=== PATIENT | male | born 1965 | race Caucasian/White ===

== ENCOUNTER 2016-05-05 05:18 | Emergency (ER) | payer MEDICARE, MEDICAID ==
[~2016-05-05] VITALS: Ht 182.9 cm; Wt 77.3 kg
[~2016-05-05 05:18] MED LIST: ALBU8.5H2 INHALATION; IPRA4AER IH; KLO5T PO; OLAN5TAB PO; PALI156D IM; PALI234D IM; TIOT18CA3 IH
[2016-05-05 05:28] VITALS: BP 119/75; PULSE 85; RESP 20; O2SAT 93
[2016-05-05 05:40] VITALS: O2SAT 91
[2016-05-05 05:50] VITALS: O2SAT 94
--- NOTE | 2016-05-05 06:32 | ED.REPORT ---
HPI-Dyspnea / Wheezing Date of Service May 05, 2016 ED Provider: Crispin Dumont MD A 51 year old male with a history of COPD, schizophrenia, PTSD, polysubstance abuse presents to the ED complaining of dyspnea onset unknown. Patient is currently experiencing a productive cough and reports that it is difficult to speak. He was recently seen in the ED on 04/17 for chest pain and discharged in good condition. He denies fever. Patient is a poor historian. Nursing Notes Stated Complaint: COUGH Chief Complaint: Respiratory Complaints Nursing Notes Reviewed: Yes Allergies: Coded Allergies: No Known Allergies (Unverified Allergy, Unknown, 05/05/16) Scheduled Albuterol HFA (Proair HFA) 8.5 Gm Hfa.aer.ad 2 PUFFS INHALATION Q4H Albuterol/Ipratropium (Combivent Respimat Inhal [place]) 120 Spr/4 Gm Inhaler 1 PUFF IH QID Albuterol/Ipratropium (Combivent Respimat Inhal [place]) 120 Spr/4 Gm Inhaler 2 PUFF IH QID Clonazepam (Clonazepam) 0.5 Mg Tablet 0.5 MG PO BID Levofloxacin (Levaquin) 750 Mg Tablet 750 MG PO DAILY Olanzapine (Olanzapine) 5 Mg Tablet 10 MG PO 0830,16 Paliperidone Palmitate Inj (Invega Sustenna) 156 Mg/1 Ml Syringe 156 MG IM Q30D Paliperidone Palmitate Inj (Invega Sustenna) 234 Mg/1.5 Ml Syringe 234 MG IM qmonth Prednisone (PredniSONE) 20 Mg Tablet 40 MG PO DAILY Tiotropium [place] (Spiriva) 18 Mcg Cap.w.dev 18 MCG IH DAILY Scheduled PRN Albuterol HFA (Proair HFA) 8.5 Gm Hfa.aer.ad 2 PUFFS INHALATION Q4H PRN PRN For Shortness of Breath General Time Seen by MD: 05:55 Chief Complaint Other (Dyspnea) Hx Obtained From: Patient Arrived By: Walk-in Sudden in Onset?: No Onset Occurred: Onset unknown Symptom Duration: Since onset Associated with: Reports: Cough, Denies: Fever Pertinent Negative: Pt denies other symptoms Recent Healthcare: No recent doctor visit, Recent hospitalization Past Medical History Past Medical History Notes: PCP: Dr. Mason Past Medical History Schizophrenia Polysubstance dependence in past per old records Asthma COPD PTSD, depression, anxiety Reports: Schizophrenia Past Surgical History Reviewed, not relevant Smoking History Current Every Day Smoker Social History Violent and antisocial at times with threatening behavior and a history of threatening and stalking ER staff. Alcohol Use: "Social" Drug Use: IV drugs, Meth, THC Ambulatory Status Independent Review of Systems Constitutional: Denies: Chills, Fever Respiratory: Reports: Dyspnea on exertion, Non-productive cough, Shortness of breath Complete sys rev & neg: except as marked. Physical Exam Initial Vital Signs Vital Signs (First) Date Time Temp Pulse Resp B/P Pulse Ox O2 Delivery O2 Flow Rate FiO2 05/05/16 05:28 36.5 85 20 119/75 93 Room Air 05/05/16 05:50 1 Initial VS: Reviewed Head / Eyes: Atraumatic, Normocephalic, PERRL Extremities: Vascular intact, Neuro intact, No swelling, No tenderness Skin: Warm, Dry, No cyanosis General/Constitutional: Awake, Alert Neck: Atraumatic Respiratory / Chest: Atraumatic, No respiratory distress Wheezing / Retractions: Positive: Wheeze insp/exp diffuse RESPIRATORY: Good air movement Cardiovascular: Heart rate NL, Regular rhythm, Heart sounds NL, No gallop, No murmurs, No rubs ENT: Atraumatic, Airway patent, Mucous membranes moist Interpretation & Diagnostics X-Ray Chest Interpretation Chest Xray Interpretation: IMPRESSION: Mild or early pneumonia posterior left lower lobe. Note: These findings are concordant with the preliminary interpretation. Dictated by: Luis Barclay M.D. on 05/05/2016 at 7:50 Interpretation / Wet Read by: Interpret - Radiologist Re-Eval/Medical Decision Re-Evaluation/Progress : Time of Eval: 08:19 Patient Status: Condition improved Re-Evaluation/Progress Note: Patient is rechecked. He is informed of his lab results, X-ray results and diagnosis. He understands and agrees with the treatment plan to meet with his PCP. Counseled Regarding: Diagnosis, Lab results, Need for follow-up, When/why to return to ED Discharge & Departure Impression: Primary Impression: Pneumonia Pneumonia type: due to unspecified organism Laterality: unspecified laterality Lung location: lower lobe of lung Qualified Code: J18.9 - Pneumonia, unspecified organism Disposition: Home Discharge Condition All VS Reviewed: Yes Condition: Stable Patient Instructions: Bacterial Pneumonia (ED) Additional Instructions: ED evaluation included interview, exam and chest x-ray. We have started antibiotics (levaquin) and prednisone,, a steroid to help your breathing. For home, continue levaquin for 4 more days, starting tomorrow. Prednisone 40mg a day for 4 more days. Combivent 2 puffs 4 times a day and albuterol 2 puffs every 4 hours as needed for shortness of breath. Return to ED for increasing shortness of breath, or if unable to get medications as prescribed. Rx sent to [facility]. Referrals: [facility] (PCP) Scribe Attestation Portions of this note were transcribed by Melinda Valentine. I, Dr. Dumont personally performed the history, physical exam and medical decision-making; I reviewed and confirmed the accuracy of the information in the transcribed note. Signed by: Zayra De Leon, 05/05/16 0840. copies to: [facility]; Tyrell Mason MD, Donald L MD May 05, 2016 06:32 MELINDA VALENTINE May 05, 2016 07:04
[2016-05-05] MEDS ORDERED: Albuterol-Ipratropium 3 mL Inhalation Solution NEB ONE (07:00)
[2016-05-05] MEDS ORDERED: predniSONE 20 mg Tablet PO ONE (07:00)
[2016-05-05] MEDS ORDERED: levoFLOXacin 750 mg Tablet PO ONE (07:00)
[2016-05-05 07:14] VITALS: PULSE 85; RESP 20; O2SAT 96
--- NOTE | 2016-05-05 07:52 | DRSVH ---
PROCEDURE: X-RAY CHEST, TWO VIEWS ([id number]) INDICATIONS: cough TECHNIQUE: 2 views of the chest were acquired. COMPARISON: [facility], CR, XR CHEST 1VW (PORTABLE), 04/17/2016, 12:27. [facility], CR, XR CHEST 2VW, 03/27/2016, 8:08. FINDINGS: Surgical changes and devices: None. Lungs and pleura: No pleural effusions or pneumothorax. Lungs are abnormal with mild or early pneum onia posterior left lung base.. Mediastinum: Mediastinal contours are normal. Heart size is normal. Bones and chest wall: No suspicious bony abnormalities. Soft tissues appear unremarkable. IMPRESSION: Mild or early pneumonia posterior left lower lobe. Note: These findings are concordant with the preliminary interpretation. Dictated by: Luis Barclay M.D. on 05/05/2016 at 7:50 Approved by: Luis Barclay M.D. on 05/05/2016 at 7:50
[2016-05-05] MEDS ORDERED: LEVO750T9 PO (08:34)
[2016-05-05] MEDS ORDERED: IPRA4AER IH (08:34)
[2016-05-05] MEDS ORDERED: PRE20 PO (08:34)
[2016-05-05] MEDS ORDERED: ALBU8.5H2 INHALATION (08:34)
[2016-05-05 08:38] VITALS: BP 131/82; PULSE 78; RESP 18; O2SAT 94
[2016-05-05 09:30] VITALS: BP 126/81; PULSE 87; RESP 20; O2SAT 91
== END 2016-05-05 08:39 | disposition home or self-care (01) ==
LOC: SED 05:18 → EDBD 05:18 → SED 08:39
DX: J18.9 Pneumonia, unspecified organism (principal); J44.9 Chronic obstructive pulmonary disease, unspecified; F17.200 Nicotine dependence, unspecified, uncomplicated
CPT/HCPCS: 71020; 94640; 99284; J7620

== ENCOUNTER 2016-05-05 10:30 | Emergency (ER) | payer MEDICARE, MEDICAID ==
[~2016-05-05] VITALS: Ht 182.9 cm; Wt 77.3 kg
[~2016-05-05 10:30] MED LIST changes: +LEVO750T9 PO; +PRE20 PO
--- NOTE | 2016-05-05 10:31 | ED.REPORT ---
HPI-Dyspnea / Wheezing Date of Service May 05, 2016 ED Provider: Dr. Martinez Pt is a 51 y/o male w/ a hx of asthma, COPD, homelessness, presenting to the ED via EMS c/o SOB onset today. He was seen in the ED about 2 hours previous to this visit and discharged with a diagnosis of pneumonia which was confirmed with x-ray. Nurses were concerned that his O2 saturation was dropping into the high 80s with exertion and the patient did not feel safe to be discharged. His vital signs were thought to be stable and he was discharged and told to return if he seemed to worsen. Labs were not collected during that visit. He was discharged with prescriptions for Levaquin and Prednisone. 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 He received a breathing treatment from EMS with moderate relief. Nursing Notes Stated Complaint: SHORTNESS OF BREATH Nursing Notes Reviewed: Yes Allergies: Coded Allergies: No Known Allergies (Unverified Allergy, Unknown, 05/05/16) Scheduled Albuterol HFA (Proair HFA) 8.5 Gm Hfa.aer.ad 2 PUFFS INHALATION Q4H Albuterol/Ipratropium (Combivent Respimat Inhal [place]) 120 Spr/4 Gm Inhaler 1 PUFF IH QID Albuterol/Ipratropium (Combivent Respimat Inhal [place]) 120 Spr/4 Gm Inhaler 2 PUFF IH QID Clonazepam (Clonazepam) 0.5 Mg Tablet 0.5 MG PO BID Levofloxacin (Levaquin) 750 Mg Tablet 750 MG PO DAILY Olanzapine (Olanzapine) 5 Mg Tablet 10 MG PO 0830,16 Paliperidone Palmitate Inj (Invega Sustenna) 156 Mg/1 Ml Syringe 156 MG IM Q30D Paliperidone Palmitate Inj (Invega Sustenna) 234 Mg/1.5 Ml Syringe 234 MG IM qmonth Prednisone (PredniSONE) 20 Mg Tablet 40 MG PO DAILY Tiotropium [place] (Spiriva) 18 Mcg Cap.w.dev 18 MCG IH DAILY Scheduled PRN Albuterol HFA (Proair HFA) 8.5 Gm Hfa.aer.ad 2 PUFFS INHALATION Q4H PRN PRN For Shortness of Breath General Time Seen by MD: 10:30 Chief Complaint Shortness of breath Hx Obtained From: Patient, EMS Arrived By: Ambulance Sudden in Onset?: No Onset Occurred: 9 - 12 hours ago Symptom Duration: Since onset Severity: Current: No pain currently Severity: Maximum: No pain Recent Healthcare: Recent doctor visit, Previous diagnosis Similar Sx Previous: Yes Past Medical History Past Medical History Notes: PCP: Dr. Mason Past Medical History Schizophrenia Polysubstance dependence in past per old records Asthma COPD PTSD, Depression, Anxiety Past Surgical History Reviewed, not relevant Smoking History Current Every Day Smoker Social History Violent and antisocial at times with threatening behavior and a history of threatening and stalking ER staff. Alcohol Use: "Social" Drug Use: IV drugs, Meth, THC Other Social History: Homeless Ambulatory Status Independent Review of Systems Constitutional: Denies: Chills, Fever Respiratory: Reports: Non-productive cough, Shortness of breath, Wheezing Cardiovascular: Denies: Chest pain, Edema Complete sys rev & neg: except as marked. GI: Denies: Abdominal pain, Nausea, Vomiting Female: Denies: Dysuria Neurologic: Denies: Headache Physical Exam Initial Vital Signs Initial VS: Reviewed, Vital signs normal Head / Eyes: Atraumatic, Normocephalic, PERRL ENT: Mucous membranes moist, Conjunctiva normal, No scleral icterus Abdomen / GI: Soft, Non-tender Extremities: Vascular intact, Neuro intact, No swelling Skin: Warm, Dry, No cyanosis Neurologic: Alert, Oriented, Nonfocal Psychiatric: Mood/affect normal, Behavior normal, Normal thought content General/Constitutional: Awake, Alert, No acute distress, Cooperative, Not toxic appearing Neck: Atraumatic, Supple, No meningismus, Full range of motion Respiratory / Chest: Atraumatic, No respiratory distress, No retractions Diffuse expiratory wheezing Inspiratory soundsnormal Audible wheezing Not tachypneic Cardiovascular: Heart rate NL, Regular rhythm, Heart sounds NL, No gallop, No murmurs, No rubs, Cap refill not delayed, Peripheral circulation NL Interpretation & Diagnostics Lab Results Interpretation Test 05/05/16 10:40 White Blood Count 9.4th/mm3 (3.8-10.1) Red Blood Count 5.14mil/mm3 (4.40-5.80) Hemoglobin 14.7g/dL (13.8-17.2) Hematocrit 44.8% (41.0-50.0) Mean Corpuscular Volume 87.2fL (81-100) Mean Corpuscular Hemoglobin 28.6pg (27.0-35.0) Mean Corpuscular Hemoglobin Concent 32.8% (32.0-37.0) Red Cell Distribution Width 13.8% (12.3-15.4) Platelet Count 289bil/L (150-400) Neutrophils (%) (Auto) 88.2% (40-74) Lymphocytes (%) (Auto) 6.4% (14-46) Monocytes (%) (Auto) 1.8% (4-12) Eosinophils (%) (Auto) 2.8% (0-5) Basophils (%) (Auto) 0.7% (0-3) Sodium Level 133mEq/L (134-144) Potassium Level 4.5mEq/L (3.5-5.2) Chloride Level 96mEq/L (97-108) Carbon Dioxide Level 28mmol/L (18-29) Blood Urea Nitrogen 7mg/dL (6-24) Creatinine 0.90mg/dL (0.76-1.27) Estimat Glomerular Filtration Rate 95mL/min (>59) Glucose Level 189mg/dL (60-99) Hemoglobin A1c 5.7% (4.8-5.6) Calcium Level 9.0mg/dL (8.5-10.1) Total Bilirubin 0.3mg/dL (0.0-1.2) Aspartate Amino Transf (AST/SGOT) 41U/L (0-50) Alanine Aminotransferase (ALT/SGPT) 55U/L (0-44) Alkaline Phosphatase 94U/L (25-150) Total Protein 7.6g/dL (6.4-8.4) Albumin 4.1g/dL (3.4-5.0) Pulse Oximetry Interpretation Pulse Oximetry: Pulse Ox normal, On room air CBC Interpretation CBC normal BMP / CMP Interpretation BMP/CMP normal except, Glucose elevated Re-Eval/Medical Decision Med Decision/Clinical Course 51-year-old male returns to the ER 2 hours after being diagnosed with pneumonia and being sent home from the ER. He is in no obvious respiratory distress. He was wheezy when he arrived and a breathing treatment did help him. He was given an albuterol inhaler in the emergency room. His vitals are normal. We have coordinated with his pharmacy and insurance to make sure he can get the medicines he needs. We have arranged for follow-up. The patient understands this plan. Source of Hx: Old records, EMS Re-Evaluation/Progress : Time of Eval: 11:45 Re-Evaluation/Progress Note: Pt rechecked. O2 sat 98% on RA. He is feeling much better. Informed pt of plan for treatment. Pt understands and agrees with plan for treatment. F/U and RTER warnings given. All questions addressed. Counseled Regarding: Diagnosis, Lab results, Need for follow-up, When/why to return to ED Discharge & Departure Impression: Primary Impression: Left lower lobe pneumonia Pneumonia type: due to unspecified organism Qualified Code: J18.9 - Pneumonia, unspecified organism Additional Impression: Hyperglycemia Disposition: Home Discharge Condition All VS Reviewed: Yes Condition: Stable Patient Instructions: Bacterial Pneumonia (ED) Additional Instructions: I believe it is appropriate for you to be discharged because your labs and vital signs today are normal. Please take the prescribed Levaquin and Prednisone as directed. Use your Albuterol every 4 hours as needed for wheezing. Return to the emergency department for worsening shortness of breath or respiratory distress, if you develop a high fever, or for other concerning symptoms. Follow-up with Dr. Mason next week. I believe that you have diabetes and I have ordered a test to confirm this which will be back by the time you see your doctor. Call tomorrow morning to set up an appointment. Referrals: Tyrell Mason MD Attestation Portions of this note were transcribed by Power De La V[place]. I, Dr. Carter personally performed the history, physical exam and medical decision-making; I reviewed and confirmed the accuracy of the information in the transcribed note. Signed by Zayra Abel, 05/05/16 - 1100 copies to: Tyrell Mason MD, Gary R DO May 05, 2016 10:31 POWER DE LA [place]GA May 05, 2016 10:44 Amanuel Martinez DO May 05, 2016 10:31 POWER DE [place] May 05, 2016 10:44
[2016-05-05 10:35] VITALS: BP 128/66; PULSE 93; RESP 15; O2SAT 96
[2016-05-05] MEDS ORDERED: Albuterol HFA 60 Puff 8 Gm Inhaler INHALATION ONE (10:50)
[2016-05-05 10:56] LABS: BASOPHILS % (AUTO) 0.7 % (0-3); EOSINOPHILS % (AUTO) 2.8 % (0-5); MONOCYTES % (AUTO) 1.8 % (4-12); Mean Corpuscular Hemoglobin 28.6 pg (27.0-35.0); Mean Corpuscular Volume 87.2 fL (81-100); NEUTROPHILS % (AUTO) 88.2 % (40-74); Platelet Count 289 bil/L (150-400)
[2016-05-05 12:49] VITALS: BP 114/66; PULSE 84; O2SAT 93
== END 2016-05-05 12:17 | disposition home or self-care (01) ==
LOC: SED 10:30
DX: J18.9 Pneumonia, unspecified organism (principal); R73.9 Hyperglycemia, unspecified; J44.9 Chronic obstructive pulmonary disease, unspecified; F20.9 Schizophrenia, unspecified; F17.200 Nicotine dependence, unspecified, uncomplicated; Z59.0 Homelessness

== ENCOUNTER 2016-06-08 17:38 | Emergency (ER) | payer MEDICARE, MEDICAID ==
[~2016-06-08] VITALS: Ht 182.9 cm; Wt 75.0 kg
[2016-06-08] VITALS (7 sets, daily range): BP systolic 102–110; BP diastolic 52–70; PULSE 78–87; RESP 16–24; O2SAT 94–99
[2016-06-08 18:59] LABS: BASOPHILS % (AUTO) 1.3 % (0-3); EOSINOPHILS % (AUTO) 12.6 % (0-5); MONOCYTES % (AUTO) 9.7 % (4-12); Mean Corpuscular Hemoglobin 28.6 pg (27.0-35.0); NEUTROPHILS % (AUTO) 47.1 % (40-74); Platelet Count 250 bil/L (150-400)
[2016-06-08 19:26] LABS: TROPONIN T < 0.010 ug/L (0.0-0.011)
--- NOTE | 2016-06-08 21:01 | ED.REPORT ---
HPI-Dyspnea / Wheezing Date of Service Jun 08, 2016 ED Provider: Guru Tabor MD A homeless 51 year old male with a history of COPD and schizophrenia is brought to the ED via EMS due to respiratory distress. The pt has been experiencing a worsening cough for two to three weeks in addition to increased shortness of breath and wheezing, though he denies fever. He does not have nebulizer treatments at home. He was seen twice on 05/05/2016 for left lower lobe pneumonia and discharged with prescriptions for Levaquin and Prednisone. History is severely limited by pt inability to communicate. Nursing Notes Stated Complaint: SHORTNESS OF BREATH Chief Complaint: Respiratory Complaints Nursing Notes Reviewed: Yes Allergies: Coded Allergies: No Known Allergies (Verified Allergy, Unknown, 06/08/16) Scheduled Albuterol HFA (Proair HFA) 8.5 Gm Hfa.aer.ad 2 PUFFS INHALATION Q4H Albuterol HFA (Proair HFA) 8.5 Gm Hfa.aer.ad 2-4 PUFFS INHALATION Q2H Albuterol/Ipratropium (Combivent Respimat Inhal [place]) 120 Spr/4 Gm Inhaler 1 PUFF IH QID Albuterol/Ipratropium (Combivent Respimat Inhal [place]) 120 Spr/4 Gm Inhaler 2 PUFF IH QID Clonazepam (Clonazepam) 0.5 Mg Tablet 0.5 MG PO BID Levofloxacin (Levaquin) 750 Mg Tablet 750 MG PO DAILY Olanzapine (Olanzapine) 5 Mg Tablet 10 MG PO 0830,16 Paliperidone Palmitate Inj (Invega Sustenna) 156 Mg/1 Ml Syringe 156 MG IM Q30D Paliperidone Palmitate Inj (Invega Sustenna) 234 Mg/1.5 Ml Syringe 234 MG IM qmonth Prednisone (PredniSONE) 20 Mg Tablet 40 MG PO DAILY Prednisone (PredniSONE) 20 Mg Tablet 60 MG PO DAILY Tiotropium [place] (Spiriva) 18 Mcg Cap.w.dev 18 MCG IH DAILY Scheduled PRN Albuterol HFA (Proair HFA) 8.5 Gm Hfa.aer.ad 2 PUFFS INHALATION Q4H PRN PRN For Shortness of Breath General Time Seen by MD: 20:59 Chief Complaint Cough Hx Obtained From: Patient, EMS Arrived By: Ambulance Sudden in Onset?: No Onset Occurred: More than a week ago... Symptom Duration: Since onset Recent Healthcare: Recent doctor visit, Recent hospitalization Similar Sx Previous: Yes Past Medical History Past Medical History Notes: PCP: Dr. Mason Past Medical History Schizophrenia Polysubstance dependence in past per old records Asthma COPD PTSD, Depression, Anxiety Past Surgical History Reviewed, not relevant Smoking History Current Every Day Smoker Social History Violent and antisocial at times with threatening behavior and a history of threatening and stalking ER staff. Alcohol Use: "Social" Drug Use: IV drugs, Meth, THC Other Social History: Homeless Ambulatory Status Independent Review of Systems Constitutional: Denies: Fever Respiratory: Reports: Prod cough, clear, Shortness of breath, Wheezing Cardiovascular: Denies: Chest pain Musculoskeletal: Denies: Back pain Skin: Denies Rash Complete sys rev & neg: except as marked. Physical Exam Initial Vital Signs Vital Signs (First) Date Time Temp Pulse Resp B/P Pulse Ox O2 Delivery O2 Flow Rate FiO2 06/08/16 17:46 36.5 79 24 110/70 97 Simple Mask 7 Initial VS: Reviewed General/Constitutional: Awake, Alert, No acute distress disheveled minimally intelligible Neck: Atraumatic, Supple, Full range of motion Respiratory / Chest: Atraumatic, Breath sounds = bilat, No respiratory distress diffuse inspiratory and expiratory wheezing with no rales Cardiovascular: Heart rate NL, Regular rhythm, Heart sounds NL ENT: Atraumatic, Airway patent, Mucous membranes moist Abdomen: Atraumatic, Soft, Non-tender Back: Atraumatic, Full range of motion Lower Extremity / Pelvis / MS: Atraumatic, Full range of motion Skin: Atraumatic, Color NL, No rash, Warm, Dry Neurologic: Oriented X3, No motor deficits, No sensory deficits Head / Eyes: Atraumatic, Normocephalic, PERRL, EOMI Upper Extremity / MS: Atraumatic, Full range of motion Psychiatric: Affect NL, Mood NL Interpretation & Diagnostics Lab Results Interpretation Result Diagram: 06/08/16184406/08/161844 Test 06/08/16 18:45 White Blood Count 7.2th/mm3 (3.8-10.1) Red Blood Count 4.30mil/mm3 (4.40-5.80) Hemoglobin 12.3g/dL (13.8-17.2) Hematocrit 37.0% (41.0-50.0) Mean Corpuscular Volume 86.0fL (81-100) Mean Corpuscular Hemoglobin 28.6pg (27.0-35.0) Mean Corpuscular Hemoglobin Concent 33.2% (32.0-37.0) Red Cell Distribution Width 13.6% (12.3-15.4) Platelet Count 250bil/L (150-400) Neutrophils (%) (Auto) 47.1% (40-74) Lymphocytes (%) (Auto) 29.2% (14-46) Monocytes (%) (Auto) 9.7% (4-12) Eosinophils (%) (Auto) 12.6% (0-5) Basophils (%) (Auto) 1.3% (0-3) Sodium Level 130mEq/L (134-144) Potassium Level 3.5mEq/L (3.5-5.2) Chloride Level 94mEq/L (97-108) Carbon Dioxide Level 26mmol/L (18-29) Blood Urea Nitrogen 9mg/dL (6-24) Creatinine 0.87mg/dL (0.76-1.27) Estimat Glomerular Filtration Rate 99mL/min (>59) Glucose Level 105mg/dL (60-99) Calcium Level 8.3mg/dL (8.5-10.1) Total Bilirubin 0.2mg/dL (0.0-1.2) Aspartate Amino Transf (AST/SGOT) 26U/L (0-50) Alanine Aminotransferase (ALT/SGPT) 39U/L (0-44) Alkaline Phosphatase 83U/L (25-150) Troponin T < 0.010ug/L (0.0-0.011) Pro-B-Type Natriuretic Peptide 238.0pg/mL (0-121) Total Protein 6.2g/dL (6.4-8.4) Albumin 3.4g/dL (3.4-5.0) Hold Ramírez Top Tube Received (Received) ECG Interpretation ECG Interpretation: normal sinus rhythm with a rate of 69 ST elevation, probable early repol pattern Time: 18:44 Interpreted by: ED physician Re-Eval/Medical Decision Source of Hx: Old records Re-Evaluation/Progress : Time of Eval: 23:07 Patient Status: Condition improved Re-Evaluation/Progress Note: Pt rechecked, whose breathing has significantly improved following nebulizer treatments. He is feeling prepared for discharge. The plan for discharge is discussed. The pt understands and agrees with the plan. All questions are addressed at this time. Counseled Regarding: Diagnosis, Lab results, Need for follow-up, When/why to return to ED Discharge & Departure Impression: Primary Impression: Acute exacerbation of COPD with asthma Disposition: Home Discharge Condition All VS Reviewed: Yes Condition: Stable Patient Instructions: Emphysema (ED) Additional Instructions: I think that you have experienced a flare-up of your COPD with asthma. I expect that you will feel much better if you take 2-4 inhalations of the albuterol every 2 hours for the next few days. Also, take prednisone 60 mg daily for 5 days. Follow-up with your doctor in a few days if you are not feeling much better, sooner if worse. Referrals: Tyrell Mason MD (PCP) [place] Attestation Portions of this note were transcribed by Juliet Coe. I, Dr. Tabor personally performed the history, physical exam and medical decision-making; I reviewed and confirmed the accuracy of the information in the transcribed note. Signed by: Zayra Nelson, 06/08/2016 and 23:21. copies to: Tyrell Mason MD, Kirk H MD Jun 08, 2016 21:01 JULIET COE Jun 08, 2016 21:42
[2016-06-08] MEDS ORDERED: Albuterol 2.5 mg/3 mL Inhalation Solution NEB ONE (21:25)
[2016-06-08] MEDS ORDERED: predniSONE 20 mg Tablet PO ONE (21:25)
[2016-06-08] MEDS ORDERED: ALBU8.5H2 INHALATION (23:14)
[2016-06-08] MEDS ORDERED: PRE20 PO (23:14)
--- NOTE | 2016-06-09 15:12 | DRSVH ---
PROCEDURE: X-RAY CHEST ONE VIEW, PORTABLE ([id number]) INDICATIONS: Shortness of breath TECHNIQUE: One view of the chest was acquired. COMPARISON: [facility], CR, XR CHEST 1VW (PORTABLE), 04/17/2016, 12:27. [facility], CR, XR CHEST 2VW, 05/05/2016, 5:47. FINDINGS: Surgical changes and devices: None. Lungs and pleura: Slight appearance increased right basilar opacity. Mediastinum: Mediastinal contours appear normal. Heart size is normal. Bones and chest wall: No suspicious bony lesions. Overlying soft tissues appear unremarkable. IMPRESSION: Slight appearance of increased right basilar. Developing airspace disease such as pneumon ia cannot be excluded. Dictated by: Toshia Alva M.D. on 06/08/2016 at 18:48 Approved by: Toshia Alva M.D. on 06/08/2016 at 18:52
== END 2016-06-08 23:40 | disposition home or self-care (01) ==
LOC: SED 17:38
DX: J44.1 Chronic obstructive pulmonary disease with (acute) exacerbation (principal); J45.909 Unspecified asthma, uncomplicated; F20.9 Schizophrenia, unspecified; F17.200 Nicotine dependence, unspecified, uncomplicated
CPT/HCPCS: 36415; 71010; 80053; 83880; 84484; 85025; 93005; 94644; 99285; J7613

== ENCOUNTER 2016-07-01 18:45 | Inpatient (IN) | payer MEDICARE, MEDICAID, OTHER ==
[~2016-07-01] VITALS: Ht 180.3 cm; Wt 73.3 kg
[2016-07-01 18:53] VITALS: BP 130/90; PULSE 90; RESP 22; O2SAT 98
--- NOTE | 2016-07-01 20:08 | ED.REPORT ---
HPI-General Illness Date of Service Jul 01, 2016 ED Provider: Dr. Shanika Mejía M.D. A 51 year old male with a history of schizophrenia, COPD, asthma, PTSD, depression, anxiety, and polysubstance abuse presents to the ED with shortness of breath. He also requests psychiatric evaluation and treatment. The patient denies cough, suicidal ideation, homicidal ideation, or other symptoms. He has run out of his home medications. History is limited due to the patient's communication difficulties. He presents agitated, mumbling, and making poor eye contact. Nursing Notes Stated Complaint: DIFFICULTY BREATHING Chief Complaint: Respiratory Complaints Nursing Notes Reviewed: Yes Allergies: Coded Allergies: No Known Allergies (Verified Allergy, Unknown, 07/01/16) Scheduled Albuterol/Ipratropium (Combivent Respimat Inhal [place]) 120 Spr/4 Gm Inhaler 1 PUFF IH QID Olanzapine (Olanzapine) 5 Mg Tablet 10 MG PO 0830,16 Paliperidone Palmitate Inj (Invega Sustenna) 156 Mg/1 Ml Syringe 156 MG IM Q30D Scheduled PRN Albuterol HFA (Proair HFA) 8.5 Gm Hfa.aer.ad 2 PUFFS INHALATION Q4H PRN PRN For Shortness of Breath General Time Seen by MD: 20:07 Chief Complaint Breathing problem Hx Obtained From: Patient Arrived By: Walk-in Onset Occurred: Onset unknown Symptom Duration: Duration unknown Severity: Current: No pain currently Severity: Maximum: No pain Associated with: Denies: Cough, Fever Pertinent Negative: Relieved by nothing Context Related History: Reports Asthma, Reports COPD, Reports Psychiatric history Recent Healthcare: No recent doctor visit Similar Sx Previous: Yes Past Medical History Past Medical History Notes: PCP: Dr. Mason Past Medical History Schizophrenia Polysubstance dependence in past per old records Asthma COPD PTSD, Depression, Anxiety Past Surgical History Reviewed, not relevant Smoking History Current Every Day Smoker Social History Violent and antisocial at times with threatening behavior and a history of threatening and stalking ER staff. Alcohol Use: "Social" Drug Use: IV drugs, Meth, THC Other Social History: Homeless Ambulatory Status Independent Review of Systems + Psychiatric evaluation request Full Review of Systems Constitutional: Denies: Fever Respiratory: Reports: Shortness of breath, Denies: Non-productive cough GI: Denies: Diarrhea, Vomiting Psychiatric: Denies: Homicidal ideation, Suicidal ideation Complete sys rev & neg: except as marked. Physical Exam Vital Signs Vital Signs Date Time Temp Pulse Resp B/P Pulse Ox O2 Delivery O2 Flow Rate FiO2 07/01/16 21:13 72 16 97 Room Air 07/01/16 18:53 35.6 90 22 130/90 98 Room Air Initial VS: Reviewed, Vital signs normal Head / Eyes: Atraumatic, Normocephalic ENT: Conjunctiva normal, No scleral icterus Neck: Supple, Full range of motion Respiratory: Breath sounds normal, Clear to auscultation, No respiratory distress Cardiovascular: Regular rate & rhythm, Heart sounds normal Skin: Warm, Dry, No cyanosis General/Constitutional: Awake, Alert Behavior: Positive: Agitated Patient is mumbling Psychiatric: Not suicidal, Not homicidal Making poor eye contact Interpretation & Diagnostics URINE DRUG SCREEN: + Methamphetamines + Amphetamines Otherwise Negative Lab Results Interpretation Result Diagram: 07/01/16204807/01/162048 Test 07/01/16 20:49 07/01/16 21:16 White Blood Count 10.3th/mm3 (3.8-10.1) Red Blood Count 4.52mil/mm3 (4.40-5.80) Hemoglobin 13.0g/dL (13.8-17.2) Hematocrit 37.1% (41.0-50.0) Mean Corpuscular Volume 82.1fL (81-100) Mean Corpuscular Hemoglobin 28.8pg (27.0-35.0) Mean Corpuscular Hemoglobin Concent 35.0% (32.0-37.0) Red Cell Distribution Width 13.1% (12.3-15.4) Platelet Count 278bil/L (150-400) Neutrophils (%) (Auto) 69.4% (40-74) Lymphocytes (%) (Auto) 21.3% (14-46) Monocytes (%) (Auto) 6.7% (4-12) Eosinophils (%) (Auto) 1.8% (0-5) Basophils (%) (Auto) 0.5% (0-3) Sodium Level 121mEq/L (134-144) Potassium Level 4.2mEq/L (3.5-5.2) Chloride Level 85mEq/L (97-108) Carbon Dioxide Level 24mmol/L (18-29) Blood Urea Nitrogen 11mg/dL (6-24) Creatinine 0.86mg/dL (0.76-1.27) Estimat Glomerular Filtration Rate 100mL/min (>59) Glucose Level 95mg/dL (60-99) Calcium Level 8.4mg/dL (8.5-10.1) Total Bilirubin 0.7mg/dL (0.0-1.2) Aspartate Amino Transf (AST/SGOT) 65U/L (0-50) Alanine Aminotransferase (ALT/SGPT) 88U/L (0-44) Alkaline Phosphatase 75U/L (25-150) Total Protein 6.7g/dL (6.4-8.4) Albumin 4.0g/dL (3.4-5.0) Thyroid Stimulating Hormone (TSH) 0.967uIU/mL (0.450-4.500) Hold Ramírez Top Tube Received (Received) Hold Urine Received (Received) Re-Eval/Medical Decision Med Decision/Clinical Course The patient is very difficult to understand. Heis not doing well physically to go upstairs. He denies being suicidal or homicidal. He has had hyponatremia in the past. He Has Hyponatremia Which Could Explain Some of the Symptoms. He Was Given Zyprexa and to Get Willingly. His Current Condition Is Likely Related to Medication Noncompliance and Hyponatremia. Patient Also Complained of Some Breathing Difficulty Has History of COPD Although He Does Not Have Any Respiratory Distress. Source of Hx: Old records Time of Eval: 23:51 Patient Status: Condition improved Re-Evaluation/Progress Note: Discussed with patient lab results, diagnosis, and plan for admit. Patient agrees with plan for care and all questions were addressed. Consultation : Referral / Consult Name: Rosa Ortiz DO Consulted With: Hospitalist Call Returned at: 23:57 Cyber Systems Engineer: Agrees with eval, Agrees with plan, Accepts admit Counseled Regarding: Diagnosis, Lab results, Need for admission Discharge & Departure Primary Impression: Hyponatremia Additional Impressions: COPD (chronic obstructive pulmonary disease) COPD type: unspecified COPD Qualified Code: J44.9 - Chronic obstructive pulmonary disease, unspecified Schizophrenia Schizophrenia type: unspecified Qualified Code: F20.9 - Schizophrenia, unspecified Disposition: ADMITTED TO HOSPITAL Discharge Condition All VS Reviewed: Yes Condition: Improved Referrals: Tyrell Mason MD (PCP) Scribe Attestation Portions of this note were transcribed by Emy Goodwin. I, Dr. Mejía, personally performed the history, physical exam, and medical decision-making; I reviewed and confirmed the accuracy of the information in the transcribed note. Signed by: Zayra Cosme, 07/01/2016, 23:59 copies to: Tyrell Mason MD, Jena M MD Jul 01, 2016 20:08 EMY GOODWIN Jul 01, 2016 20:42
[2016-07-01] MEDS ORDERED: OLANZapine Zydis ODT 5 mg Tablet PO ONE (20:40)
[2016-07-01] MEDS ORDERED: Albuterol-Ipratropium 3 mL Inhalation Solution NEB ONE (20:40)
[2016-07-01] MEDS ORDERED: predniSONE 20 mg Tablet PO ONE (20:40)
[2016-07-01 20:58] LABS: BASOPHILS % (AUTO) 0.5 % (0-3); EOSINOPHILS % (AUTO) 1.8 % (0-5); MONOCYTES % (AUTO) 6.7 % (4-12); Mean Corpuscular Hemoglobin 28.8 pg (27.0-35.0); Mean Corpuscular Volume 82.1 fL (81-100); NEUTROPHILS % (AUTO) 69.4 % (40-74); Platelet Count 278 bil/L (150-400)
[2016-07-01 21:13] VITALS: PULSE 72; RESP 16; O2SAT 97
[2016-07-01] MEDS ORDERED: LORazepam 1 mg Tablet PO ONE (21:15)
[2016-07-01] MEDS ORDERED: 0.9% Sodium Chloride 1,000 ML IV ONE (21:55)
[2016-07-02] VITALS (10 sets, daily range): BP systolic 93–119; BP diastolic 59–71; PULSE 54–83; RESP 14–18; O2SAT 97–99
[2016-07-02] MEDS ORDERED: Polyethylene Glycol (PEG) 17 Gm Powder PO PRN
[2016-07-02] MEDS ORDERED: Ondansetron 2 mg/mL 2 mL Inj IVPUSH PRN
[2016-07-02] MEDS ORDERED: Alum-Mag Hydrox-Simeth 30 mL Suspension PO PRN
[2016-07-02] MEDS ORDERED: Albuterol-Ipratropium 3 mL Inhalation Solution NEB PRN (02:45)
--- NOTE | 2016-07-02 02:53 | PCM.HPMED ---
Subjective Date of Service Jul 02, 2016 Primary Provider: Admitting Physician: Rosa Ortiz DO Primary Care Physician: Tyrell Mason MD Attending Physician: Rosa Ortiz DO Admit Status: From the Emergency Department Chief Complaint: Difficulty breathing History of Present Illness: 51 year old male with a history of schizophrenia, COPD, asthma, PTSD, depression , anxiety, and polysubstance abuse presented to the ED with shortness of breath. He additionally requests psychiatric evaluation and treatment. He denies homicidal or suicidal ideation. Patient had a similar hospitalization in January 2016 with hyponatremia. After his medical clearance he had a continued stay at the [facility]. Per report he has not been compliant with his medications as he has not been able to obtain them. In the emergency department urine drug screen is positive for methamphetamines and amphetamines, otherwise negative. The majority of history is obtained from records as patient was sedated upon examination, he would nod in response to some questions and was appropriate upon transfer to the floor per [employer] Review of Systems: Unable to obtain review of systems due to patient's sleepiness Allergies Coded Allergies: No Known Allergies (Verified Allergy, Unknown, 07/01/16) Home Medications Patient reports noncompliance of medications as he has run out. He has recently used his rescue inhaler Pro-air 2 puffs inhaled every 4 hours when necessary Combivent 1 puff inhaled 4 times a day Olanzapine 10 mg by mouth 1830, 1600 daily Paliperidone palmitate (Invega Sustenna) 156 mg per 1 mL syringe, 156 mg IM every 30 days, last administration February 12, 2016 [facility] Schizophrenia polysubstance abuse Asthma COPD PTSD Depression anxiety Surgical History Unable to obtain due to patient's mental status and sedation Family History Unable to obtain due to patient's level of sedation Social History Hx Alcohol Use: No Hx Substance Use: Yes (meth, crystal, marijuana) Hx Tobacco Use: No (Denies) Smoking Status: Current Every Day Smoker Living Arrangement: Homeless Exam Vital Signs Vital Sign - Last Date Time Temp Pulse Resp B/P Pulse Ox O2 Delivery O2 Flow Rate FiO2 07/02/16 00:45 66 07/02/16 00:30 36.9 16 112/69 98 Room Air Intake and Output 07/01/16 07/01/16 07/02/16 Cumulative From/Thru 14:59 22:59 06:59 07/01/16 18:53 - 07/02/16 01:16 Intake Total 500 ml 500 ml Output Total 800 ml 800 ml Balance -300 ml -300 ml Intake Oral 500 ml 500 ml Output Urine Total 800 ml 800 ml # Voids 2 2 Exam General: Somnolent, breathing comfortably HEENT: Normocephalic, atraumatic. External ears without defect. Cardiovascular: Regular rate and rhythm with no murmurs, rubs, or gallops appreciated Pulmonary: Clear to auscultation bilaterally with no crackles, wheezes, or rhonchi. Normal respiratory effort with no use of accessory muscles. Abdomen: Bowel tones present. Soft, nontender, nondistended. Extremities: No clubbing, cyanosis, edema, or lymphadenopathy appreciated. Feet dirty Skin: Normal temperature, turgor, and texture; no rash, ulcers, or subcutaneous nodules appreciated. Neurological: Somnolent No known gait impairment. Psychiatric: Mumbling and agitated without making eye contact in emergency department per report Lab and Diagnostics Labs CBC Test 07/01/16 20:49 White Blood Count 10.3th/mm3 (3.8-10.1) Red Blood Count 4.52mil/mm3 (4.40-5.80) Hemoglobin 13.0g/dL (13.8-17.2) Hematocrit 37.1% (41.0-50.0) Mean Corpuscular Volume 82.1fL (81-100) Mean Corpuscular Hemoglobin 28.8pg (27.0-35.0) Mean Corpuscular Hemoglobin Concent 35.0% (32.0-37.0) Red Cell Distribution Width 13.1% (12.3-15.4) Platelet Count 278bil/L (150-400) Neutrophils (%) (Auto) 69.4% (40-74) Lymphocytes (%) (Auto) 21.3% (14-46) Monocytes (%) (Auto) 6.7% (4-12) Eosinophils (%) (Auto) 1.8% (0-5) Basophils (%) (Auto) 0.5% (0-3) CMP Test 07/01/16 20:49 Sodium Level 121mEq/L Potassium Level 4.2mEq/L Chloride Level 85mEq/L Carbon Dioxide Level 24mmol/L Blood Urea Nitrogen 11mg/dL Creatinine 0.86mg/dL Estimat Glomerular Filtration Rate 100mL/min Glucose Level 95mg/dL Calcium Level 8.4mg/dL Total Bilirubin 0.7mg/dL Aspartate Amino Transf (AST/SGOT) 65U/L Alanine Aminotransferase (ALT/SGPT) 88U/L Alkaline Phosphatase 75U/L Total Protein 6.7g/dL Albumin 4.0g/dL Thyroid Stimulating Hormone (TSH) 0.967uIU/mL Hold Ramírez Top Tube Received Result Diagram: 07/01/16204807/01/162048 Assessment & Plan 51 year old male with a history of schizophrenia, COPD, asthma, PTSD, depression , anxiety, and polysubstance abuse presented to the ED with shortness of breath. 1. Hyponatremia, present on admission, active -Serum sodium on admission was 121. The patient appears to have chronic hyponatremia based on prior admissions. 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 Acute psychosis, present on admission, active. -Patient with a long history of paranoid schizophrenia and reportedly has been noncompliant with medications for the past few months - He has a history of substance abuse, including methamphetamine. Patient received IM Zyprexa in ED. -Positive amphetamines and methamphetamines on urine tox dip in the emergency department -Continue 10 mg Zyprexa po daily -Hold paliperidone palmitate injection until after psych evaluation as it is a very long acting medication -Consult to psychiatry when stable and sodium > 130. 3. Acute on chronic asthma exacerbation, present on admission, active - Patient reports dyspnea - Restart Combivent and pro-air - DuoNeb when necessary 4. History of hepatitis C, active - Diagnosed during similar admission in January 2016 - Hepatitis C genotype 3 - Unknown if treatment ever pursued 5. History of hyperthyroidism, not currently active - Diagnosed during similar admission in January 2016 - TSH 0.967 on admission Acetaminophen for mild pain when necessary. Bowel regimen Senna and MiraLAX PRN. Zofran when necessary for nausea and vomiting. DVT prophylaxis with sub cutaneous Lovenox Patient unable to discuss CODE STATUS at this time, he was made full code by default Patient is admitted under observation status with expected length of stay less than 2 midnights due to severity of presenting symptoms, risk of adverse event, and complexity of treatment plan. Pain Evaluation: Adequate Pain Control Resuscitation Status: CPR: Attempt Resuscitation Attending Statement The patient was seen and examined together with house staff on 07/01/2016 and I agree with the history, exam and plan as outlined in the note above. Leia Rao DO Jul 02, 2016 02:53 Rosa Ortiz DO Jul 02, 2016 16:19
[2016-07-02] MEDS ORDERED: 0.9% Sodium Chloride 1,000 ML IV SCH (04:20)
[2016-07-02] MEDS ORDERED: Paliperidone Palmitate 156 mg/mL Inj (NC) IM SCH (05:35)
[2016-07-02] MEDS ORDERED: Albuterol 2.5 mg/3 mL Inhalation Solution NEB PRN (05:36)
[2016-07-02 07:41] LABS: BASOPHILS % (AUTO) 0.4 % (0-3); EOSINOPHILS % (AUTO) 0.9 % (0-5); MONOCYTES % (AUTO) 7.5 % (4-12); Mean Corpuscular Volume 82.5 fL (81-100); NEUTROPHILS % (AUTO) 74.5 % (40-74); Platelet Count 298 bil/L (150-400)
[2016-07-02] MEDS: Albuterol-Ipratropium 3 mL Inhalation Solution NEB SCH ×2 (08:27→11:00)
[2016-07-02 08:32] LABS: APPEARANCE,URINE HAZY (CLEAR,HAZY); COLOR,URINE STRAW (YELLOW); OCCULT BLOOD,URINE NEGATIVE (NEGATIVE); PH,URINE 6.5 (5.0-8.0); UROBILINOGEN,URINE NORMAL (NORMAL)
--- NOTE | 2016-07-02 08:51 | DRSVH ---
PROCEDURE: X-RAY CHEST ONE VIEW, PORTABLE ([id number]) INDICATIONS: dyspnea TECHNIQUE: One view of the chest was acquired. COMPARISON: [facility], CR, XR CHEST 2VW, 05/05/2016, 5:47. [facility], CR, XR CHEST 1VW (PORTABLE), 06/08/2016, 18:28. FINDINGS: Surgical changes and devices: None. Lungs and pleura: No pleural effusions or pneumothorax. Lungs are clear. Mediastinum: Mediastinal contours appear normal. Heart size is normal. Bones and chest wall: No suspicious bony lesions. Overlying soft tissues appear unremarkable. IMPRESSION: No definite acute cardiopulmonary process. Dictated by: Sami Reyes RRLuis Felipe Interpreted: Toshia Alva MD on 07/02/2016 at 8:50 Transcribed by: ESEQUIEL on 07/02/2016 at 8:51 Approved by: Toshia Alva M.D. on 07/02/2016 at 16:34
[2016-07-02 09:34] LABS: OSMOLALITY, URINE 162 mOs/kH2O (250-1200)
--- NOTE | 2016-07-02 13:31 | PCM.PNMED ---
Subjective Date of Service Jul 02, 2016 Subjective Continues to feel fatigued. Sodium overcorrected above goal to 133 from 121.repeat Na 131 . No new neurological complaints or findings. IV fluids discontinued. Exam Vital Signs Vital Sign - Last Date Time Temp Pulse Resp B/P Pulse Ox O2 Delivery O2 Flow Rate FiO2 07/02/16 12:37 65 07/02/16 10:40 36.3 16 93/59 97 Room Air Intake and Output 07/01/16 07/01/16 07/02/16 Cumulative From/Thru 15:00 23:00 07:00 07/01/16 18:53 - 07/02/16 06:42 Intake Total 500 ml 1731 ml 2231 ml Output Total 800 ml 2600 ml 3400 ml Balance -300 ml -869 ml -1169 ml Intake Oral 500 ml 1600 ml 2100 ml IV Total 131 ml 131 ml Output Urine Total 800 ml 2600 ml 3400 ml # Voids 2 4 6 # Bowel Movements 0 0 Exam General: alert and oriented, breathing comfortably HEENT: Normocephalic, atraumatic. External ears without defect. Cardiovascular: Regular rate and rhythm with no murmurs, rubs, or gallops appreciated Pulmonary: Clear to auscultation bilaterally with no crackles, wheezes, or rhonchi. Normal respiratory effort with no use of accessory muscles. Abdomen: Bowel tones present. Soft, nontender, nondistended. Extremities: No clubbing, cyanosis, edema, or lymphadenopathy appreciated. Skin: Normal temperature, turgor, and texture; no rash, ulcers, or subcutaneous nodules appreciated. Neurological: Somnolent No known gait impairment. Psychiatric: Mumbling and follows commands IVs and Medications Medications Reviewed: Medications were reviewed in detail Lab and Diagnostics Result Diagram: 07/02/1658 07/02/16 0558 X-Rays, CTs and MRIs PROCEDURE: X-RAY CHEST ONE VIEW, PORTABLE ([id number]) INDICATIONS: dyspnea TECHNIQUE: One view of the chest was acquired. COMPARISON: [facility], CR, XR CHEST 2VW, 05/05/2016, 5:47. [facility], CR, XR CHEST 1VW (PORTABLE), 06/08/2016, 18:28. FINDINGS: Surgical changes and devices: None. Lungs and pleura: No pleural effusions or pneumothorax. Lungs are clear. Mediastinum: Mediastinal contours appear normal. Heart size is normal. Bones and chest wall: No suspicious bony lesions. Overlying soft tissues appear unremarkable. IMPRESSION: No definite acute cardiopulmonary process. Dictated by: Sami Reyes RRA Interpreted: Toshia Alva MD on 07/02/2016 at 8:50 Assessment & Plan 51 year old male with a history of schizophrenia, COPD, asthma, PTSD, depression , anxiety, and polysubstance abuse presented to the ED with shortness of breath. 1. Hyponatremia, present on admission, active -Serum sodium on admission was 121. The patient appears to have chronic hyponatremia based on prior admissions. 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 IVF discontinued. Repeat sodium 131 from 133 2. psychosis, present on admission, active. -Patient with a long history of paranoid schizophrenia and reportedly has been noncompliant with medications for the past few months - He has a history of substance abuse, including methamphetamine. Patient received IM Zyprexa in ED. -Positive amphetamines and methamphetamines on urine tox dip in the emergency department -Continue 10 mg Zyprexa po daily -Hold paliperidone palmitate injection until after psych evaluation as it is a very long acting medication -Consult to psychiatry when stable and sodium > 130. 3. Acute on chronic asthma exacerbation, present on admission, active - Patient reports dyspnea - Restart Combivent and pro-air - DuoNeb when necessary 4. History of hepatitis C, active - Diagnosed during similar admission in January 2016 - Hepatitis C genotype 3 - Unknown if treatment ever pursued 5. History of hyperthyroidism, not currently active - Diagnosed during similar admission in January 2016 - TSH 0.967 on admission Acetaminophen for mild pain when necessary. Bowel regimen Senna and MiraLAX PRN. Zofran when necessary for nausea and vomiting. DVT prophylaxis with sub cutaneous Lovenox Patient unable to discuss CODE STATUS at this time, he was made full code by default Disposition :Pending SW and/or psychiatry eval VTE Mechanical Devices: Intermittant Pneumatic CD Resuscitation Status: CPR: Attempt Resuscitation Wes Georges MD Jul 02, 2016 13:31 Wes Georges MD Jul 02, 2016 13:31
[2016-07-03 06:36] VITALS: BP 108/69; PULSE 61; RESP 16; O2SAT 100
[2016-07-03 08:18] LABS: BASOPHILS % (AUTO) 1.7 % (0-3); EOSINOPHILS % (AUTO) 10.9 % (0-5); MONOCYTES % (AUTO) 12.6 % (4-12); Mean Corpuscular Hemoglobin 28.7 pg (27.0-35.0); Mean Corpuscular Volume 85.2 fL (81-100); NEUTROPHILS % (AUTO) 44.9 % (40-74); Platelet Count 265 bil/L (150-400)
[2016-07-03 08:49] LABS: Phosphorus 3.1 mg/dL (2.5-4.9)
[2016-07-03 09:17] VITALS: BP 99/61; PULSE 72; RESP 16; O2SAT 95
[2016-07-03 11:00] VITALS: PULSE 86
[2016-07-03 13:33] VITALS: BP 103/62; PULSE 69; RESP 16; O2SAT 94
--- NOTE | 2016-07-03 15:22 | PCM.PNMED ---
Subjective Date of Service Jul 03, 2016 Subjective Sodium corrected. No new complaints. Community mental health provider evaluated and recommended involuntary fci. Patient will be transferred to mental unit here or some elsewhere Exam Vital Signs Vital Sign - Last Date Time Temp Pulse Resp B/P Pulse Ox O2 Delivery O2 Flow Rate FiO2 07/03/16 13:33 36.1 69 16 103/62 94 Room Air Intake and Output 07/02/16 07/02/16 07/03/16 Cumulative From/Thru 15:00 23:00 07:00 07/01/16 18:53 - 07/03/16 06:37 Intake Total 385 ml 2736 ml 610 ml 5962 ml Output Total 1430 ml 4830 ml Balance 385 ml 1306 ml 610 ml 1132 ml Intake Oral 2736 ml 610 ml 5446 ml IV Total 385 ml 516 ml Output Urine Total 1430 ml 4830 ml # Voids 2 8 # Bowel Movements 0 0 0 Exam General: alert and oriented, breathing comfortably HEENT: Normocephalic, atraumatic. External ears without defect. Cardiovascular: Regular rate and rhythm with no murmurs, rubs, or gallops appreciated Pulmonary: Clear to auscultation bilaterally with no crackles, wheezes, or rhonchi. Normal respiratory effort with no use of accessory muscles. Abdomen: Bowel tones present. Soft, nontender, nondistended. Extremities: No clubbing, cyanosis, edema, or lymphadenopathy appreciated. Skin: Normal temperature, turgor, and texture; no rash, ulcers, or subcutaneous nodules appreciated. Neurological: Somnolent No known gait impairment. Psychiatric: Mumbling and follows commands IVs and Medications Medications Reviewed: Medications were reviewed in detail Lab and Diagnostics Result Diagram: 07/03/16 0754 07/03/16 0754 X-Rays, CTs and MRIs PROCEDURE: X-RAY CHEST ONE VIEW, PORTABLE ([id number]) INDICATIONS: dyspnea TECHNIQUE: One view of the chest was acquired. COMPARISON: [facility], CR, XR CHEST 2VW, 05/05/2016, 5:47. [facility], CR, XR CHEST 1VW (PORTABLE), 06/08/2016, 18:28. FINDINGS: Surgical changes and devices: None. Lungs and pleura: No pleural effusions or pneumothorax. Lungs are clear. Mediastinum: Mediastinal contours appear normal. Heart size is normal. Bones and chest wall: No suspicious bony lesions. Overlying soft tissues appear unremarkable. IMPRESSION: No definite acute cardiopulmonary process. Dictated by: Sami Reyes RRLuis Felipe Interpreted: Toshia Alva MD on 07/02/2016 at 8:50 Assessment & Plan 51 year old male with a history of schizophrenia, COPD, asthma, PTSD, depression , anxiety, and polysubstance abuse presented to the ED with shortness of breath. 1. Hyponatremia, present on admission, active, resolved -Serum sodium on admission was 121. The patient appears to have chronic hyponatremia based on prior admissions. 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 IVF discontinued. Current sodium 137 2. psychosis, present on admission, active. -Patient with a long history of paranoid schizophrenia and reportedly has been noncompliant with medications for the past few months - He has a history of substance abuse, including methamphetamine. Patient received IM Zyprexa in ED. -Positive amphetamines and methamphetamines on urine tox dip in the emergency department -Continue 10 mg Zyprexa po daily -Hold paliperidone palmitate injection until after psych evaluation as it is a very long acting medication -medically ready to be transferred to mental unit 3. Acute on chronic asthma exacerbation, present on admission, active - Patient reports dyspnea - Restart Combivent and pro-air - DuoNeb when necessary 4. History of hepatitis C, active - Diagnosed during similar admission in January 2016 - Hepatitis C genotype 3 - Unknown if treatment ever pursued -Recommend outpatient follow-up 5. History of subclinical hyperthyroidism, not currently active - Diagnosed during similar admission in January 2016 - TSH 0.967 on admission, within normal limits Acetaminophen for mild pain when necessary. Bowel regimen Senna and MiraLAX PRN. Zofran when necessary for nausea and vomiting. DVT prophylaxis with sub cutaneous Lovenox Disposition :medically ready to be transferred to mental unit VTE Mechanical Devices: Intermittant Pneumatic CD Resuscitation Status: CPR: Attempt Resuscitation Wes Georges MD Jul 03, 2016 15:22
[2016-07-03] MEDS ORDERED: Haloperidol 5 mg/mL Inj ONE (16:32)
[2016-07-03] MEDS ORDERED: Haloperidol 5 mg/mL Inj IM PRN ×2 (16:35→18:15)
[2016-07-03] MEDS ORDERED: Alum-Mag Hydrox-Simeth 30 mL Suspension PO PRN (19:45)
[2016-07-03] MEDS ORDERED: LORazepam 1 mg Tablet PO PRN (19:45)
[2016-07-03] MEDS ORDERED: Magnesium Hydroxide 10 mL Oral Concentration PO PRN (19:45)
[2016-07-03] MEDS ORDERED: Benzocaine-Menthol Lozenge 2/Pkg PO PRN (19:45)
[2016-07-04 12:24] VITALS: BP 86/56; PULSE 97; RESP 16
[2016-07-04] MEDS: LORazepam 1 mg Tablet PO PRN (12:24)
--- NOTE | 2016-07-04 14:30 | HP ---
[address] [address] HISTORY AND PHYSICAL PATIENT: FREEDOM GARAY : 1965 MR#: [id number] ADMIT: 07/01/2016 JOB ID: [id number] IDENTIFICATION: The patient is a white 51-year-old male with a history of schizophrenia and polysubstance abuse. He was transferred from the medical floor after he had been treated for hyponatremia. REASON FOR ADMISSION: Client detained on a 72 hour involuntary treatment hold due to grave disability due to psychosis. SUMMARY OF PRESENT ILLNESS: I met with the patient for a 20 minute evaluation and spent 30 minutes reviewing course records kept by [facility]. His main issue is schizophrenia with co-occurring substance abuse. The condition is chronic but is currently in an acute state with multiple symptoms of psychosis including paranoia, disorganized thought, ideas of reference and appearing to respond to internal stimuli. Per chart review, he has been medication noncompliant since discharging from our unit in January of last year. His urine drug screen was positive for methamphetamine which he uses IV. On the medical floor, he was combative, uncooperative and had to be restrained and given IM Haldol, Benadryl and Ativan prior to transfer to our unit. When I interviewed him today, he was extremely irritable and would only respond with mumbled one-word answers. He is showing extremely poor judgment, insight and impulse control. He appears to be quite paranoid and has a difficult time tolerating interview questions for more than 10-15 seconds. He is currently experiencing significant emotional liability, cognitive deficits, impaired reality testing and marked impairment in judgment. PAST MEDICAL HISTORY: MEDICATIONS: None. Client has a history of being on albuterol, Invega Sustenna 234 per month IM. ALLERGIES: None. ILLNESSES: 1. Hepatitis C. 2. COPD with history of hypothyroidism. FAMILY MEDICAL HISTORY: Unknown. PAST PSYCHIATRIC HISTORY: Client has multiple involuntary treatment holds. He was here on the [facility] in January of 2016 and February of 2012. PSYCHOSOCIAL HISTORY: Client could not participate in these questions due to the high level of thought disorganization, irritability and paranoia. VITAL SIGNS: 86/56, pulse 97, respirations 16, afebrile. LABORATORIES: Urine drug screen positive for meth. CBC normal. Liver, electrolytes normal. UA normal. PHYSICAL EXAMINATION: The patient appears well hydrated, good balance, normal gait. MENTAL STATUS: The patient in hospital scrubs, appeared disheveled. He avoided eye contact. His behavior was restless and agitated. Attitude guarded and withholding. Speech mumbling, nearly intelligent. Mood inpatient. Affect congruent with high intensity. Thought process: Client unable to relate a coherent history. He did appear to be responding to internal stimuli. Thought content was significant for themes of paranoia. He denied suicidal or homicidal ideation. He was sedated but was oriented to person, place and date. He did not respond to any of my questions regarding memory, attention, insight or judgment. Reality testing is impaired due to his significantly impaired. IMPRESSION: Client is a 51-year-old white male with a history of schizophrenia, polysubstance abuse, and COPD. He has been medication noncompliant in the past three months and has been indulging in IV methamphetamine habit. He is a poor historian and currently has multiple symptoms of psychosis with paranoia, disorganized thought, poor judgment and poor insight. He was detained on a 72 hour involuntary treatment hold and transferred to our unit. DIAGNOSIS: AXIS I 1. Substance induced psychosis, methamphetamine. 2. Schizophrenia, acute, paranoid. 3. Methamphetamine abuse. 4. Posttraumatic stress disorder. AXIS II Deferred. AXIS III 1. Chronic obstructive pulmonary disease. 2. Recent hyponatremia. 3. History of hypothyroidism. 4. Hepatitis C. AXIS IV Unknown. AXIS V Current global assessment of functioning equal to 20. PLAN: 1. Recommend client be admitted to our unit and be provided with high degree of safety through the structure and active adult engagement he will receive here. Will encourage him to participate in one-to-one unit and group activities focused on improving coping skills, reality based thinking and educating about the relationship between psychosis and his substance use. 2. We will start client on a combination of Risperdal 2 mg twice a day, Seroquel 100 h.s. and Klonopin 1 mg b.i.d. After stabilization on p.o. medications, we will attempt to transition to Invega 234 mg IM q. month. 3. Anticipate 5-7 day stay.
--- NOTE | 2016-07-04 15:08 | PCM.PNMED ---
Subjective Date of Service Jul 04, 2016 Subjective Patient transferred to psychiatric unit last night. Patient calm today. No new complaints. No dyspnea or wheezing complained. Exam Vital Signs Vital Sign - Last Date Time Temp Pulse Resp B/P Pulse Ox O2 Delivery O2 Flow Rate FiO2 07/04/16 12:24 36.4 97 16 86/56 07/03/16 13:33 94 Room Air Intake and Output 07/03/16 07/03/16 07/04/16 Cumulative From/Thru 15:00 23:00 07:00 07/01/16 18:53 - 07/04/16 06:06 Intake Total 5962 ml Output Total 4830 ml Balance 1132 ml Intake Oral 5446 ml IV Total 516 ml Output Urine Total 4830 ml # Voids 8 # Bowel Movements 0 Exam General: alert and oriented, breathing comfortably HEENT: Normocephalic, atraumatic. External ears without defect. Cardiovascular: Regular rate and rhythm with no murmurs, rubs, or gallops appreciated Pulmonary: Clear to auscultation bilaterally with no crackles, wheezes, or rhonchi. Normal respiratory effort with no use of accessory muscles. Abdomen: Bowel tones present. Soft, nontender, nondistended. Extremities: No clubbing, cyanosis, edema, or lymphadenopathy appreciated. Skin: Normal temperature, turgor, and texture; no rash, ulcers, or subcutaneous nodules appreciated. Neurological: Somnolent No known gait impairment. Psychiatric: Mumbling and follows commands IVs and Medications Medications Reviewed: Medications were reviewed in detail Lab and Diagnostics Result Diagram: 07/03/16 0754 07/03/16 0754 X-Rays, CTs and MRIs PROCEDURE: X-RAY CHEST ONE VIEW, PORTABLE ([id number]) INDICATIONS: dyspnea TECHNIQUE: One view of the chest was acquired. COMPARISON: [facility], CR, XR CHEST 2VW, 05/05/2016, 5:47. [facility], CR, XR CHEST 1VW (PORTABLE), 06/08/2016, 18:28. FINDINGS: Surgical changes and devices: None. Lungs and pleura: No pleural effusions or pneumothorax. Lungs are clear. Mediastinum: Mediastinal contours appear normal. Heart size is normal. Bones and chest wall: No suspicious bony lesions. Overlying soft tissues appear unremarkable. IMPRESSION: No definite acute cardiopulmonary process. Dictated by: Sami Reyes RRA Interpreted: Toshia Alva MD on 07/02/2016 at 8:50 Assessment & Plan 51 year old male with a history of schizophrenia, COPD, asthma, PTSD, depression , anxiety, and polysubstance abuse presented to the ED with shortness of breath. 1. Hyponatremia, present on admission, active, resolved -Serum sodium on admission was 121. The patient appears to have chronic hyponatremia based on prior admissions. 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 IVF discontinued. Last sodium 137 -Please check sodium twice a week while he is in mental health unit 2. psychosis, present on admission, active. -Patient with a long history of paranoid schizophrenia and reportedly has been noncompliant with medications for the past few months - He has a history of substance abuse, including methamphetamine. Patient received IM Zyprexa in ED. -Positive amphetamines and methamphetamines on urine tox dip in the emergency department -Continue 10 mg Zyprexa po daily - transferred to mental unit 3. Acute on chronic asthma exacerbation, present on admission, resolved - Patient initially reports dyspnea - DuoNeb when necessary 4. History of hepatitis C, active - Diagnosed during similar admission in January 2016 - Hepatitis C genotype 3 - Unknown if treatment ever pursued -Recommend outpatient follow-up 5. History of subclinical hyperthyroidism, not currently active - Diagnosed during similar admission in January 2016 - TSH 0.967 on admission, within normal limits Disposition : transferred to mental unit VTE Mechanical Devices: Intermittant Pneumatic CD Resuscitation Status: CPR: Attempt Resuscitation Wes Georges MD Jul 04, 2016 15:08
[2016-07-04] MEDS: risperiDONE 2 mg Tablet PO SCH (21:08)
[2016-07-05] MEDS: risperiDONE 2 mg Tablet PO SCH ×2 (08:12→22:35)
[2016-07-05] MEDS: diphenhydrAMINE 50 mg Capsule PO PRN (11:09)
[2016-07-05] MEDS: LORazepam 1 mg Tablet PO PRN ×2 (11:09→22:41)
--- NOTE | 2016-07-05 12:44 | PCM.PNPSY ---
Subjective Date of Service Jul 05, 2016 Subjective I spent 30 minutes both reviewing his treatment plan and providing supportive and educational psychotherapy. I spent less than 50% of the time counseling the patient as this was all he could tolerate. I reviewed the treatment plan with the patient and discussed options available including the potential risks, benefits and side effects. Geraldo reports extreme dysphoria, denies auditory hallucinations or suicidal ideation. The Staff reports that he has been isolative and is not participating well in one-to-one unit or group activities. He slept 8 hours. He denies medication side effects. Patient was not able to identify his medications nor what they were used to treat. He appeared to understand the need for medications by the questions he asked during our discussion. Current Medications Current Medications Clonazepam 1 mg BID PRN PO Last administered on 07/04/16 21:09; Admin Dose 1 MG; Start 07/04/16 at 13:40 Diphenhydramine HCl 50 mg ONCE ONCE IM Last administered on 07/03/16 16:34; Admin Dose 50 MG; Start 07/03/16 at 16:34; Stop 07/03/16 at 16:35; Status DC Diphenhydramine HCl 50 mg Q4H PRN PO Last administered on 07/05/16 11:09; Admin Dose 50 MG; Start 07/03/16 at 18:20 Haloperidol 10 mg Q4H PRN PO Last administered on 07/03/16 22:26; Admin Dose 10 MG; Start 07/03/16 at 18:15 Haloperidol Lactate 5 mg ONCE PRN IM Last administered on 07/03/16 16:35; Admin Dose 5 MG; Start 07/03/16 at 16:35 Lorazepam 1 mg Q4H PRN PO Last administered on 07/03/16 22:26; Admin Dose 1 MG ; Start 07/03/16 at 19:45; Stop 07/04/16 at 12:13; Status DC Lorazepam 1-2MG Q4H PRN PO Last administered on 07/05/16 11:09; Admin Dose 2 MG; Start 07/04/16 at 12:15 Lorazepam 2 mg STK-MED ONCE .ROUTE Last administered on 07/03/16 16:55; Admin Dose 2 MG; Start 07/03/16 at 16:55; Stop 07/03/16 at 16:56; Status DC Risperidone 2 mg BID PO Last administered on 07/05/16t 08:12; Admin Dose 2 MG; Start 07/04/16 at 20:30 Mental Status Exam Appearance: Disheveled Attitude: Guarded Behavior: Distractible Affect: Restricted, Labile Mood: Irritable, Dysthymic Thought Process/Associations: Loose Speech Production: Mumbled, Muter Speech Rate: Lags/Latency Thought Content: Negativistic, Suspicious Danger to Self/Suicidal Ideati: None Danger to Others: None Delusions: Paranoid (Endorses) Consciousness: Somnolent, Lethargic Orientation: Unable to assess Memory: Untestable Estimate Intellectual Function: Unable to assess Insight: Limited Judgement: Limited Result Diagram: 07/03/16 0754 07/03/16 0754 Mental Health Plan Client is a 51-year-old white male with a history of schizophrenia, polysubstance abuse, and COPD. He has been medication noncompliant in the past three months and has been indulging in IV methamphetamine habit. He is a poor historian and currently has multiple symptoms of psychosis with paranoia, disorganized thought, poor judgment and poor insight. He was detained on a 72 hour involuntary treatment hold and transferred to our unit. Today he was irritable and could only tolerate a brief interaction. He is no longer Posturing in an aggressive manner and is taking medications as prescribed. [place] AXIS I 1. Substance induced psychosis, methamphetamine. 2. Schizophrenia, acute, paranoid. 3. Methamphetamine abuse. 4. Posttraumatic stress disorder. AXIS II Deferred. AXIS III 1. Chronic obstructive pulmonary disease. 2. Recent hyponatremia. 3. History of hypothyroidism. 4. Hepatitis C. AXIS IV Unknown. AXIS V Current global assessment of functioning equal to 30 Treatments Patient is being provided with a high degree of safety through the structure and active adult engagement. We will focus on developing improved coping skills and identifying stressors that may have led to current episode. We will attempt to: Integrate into therapeutic groups, milieu and individual therapy. Maintain in a closely monitored and structured unit Provide low-stimulation environment Obtain collateral data to assist in treatment planning Assess degree of lability of affect and impulse control Complete safety plan Decrease frequency of relapse and need for re-hospitalization Establish a consistent sleep pattern Medication effective in stabilization of mood and/or thought process Reduce the risk of imminent harm to self and/or others by providing a safe environment Tolerates medication without side effects Patient will be on the following psychiatric medications: Risperdal 2 mg twice a day, Seroquel 100 h.s. Klonopin 1 mg b.i.d. After stabilization on p.o.medications, we will attempt to transition to Invega 234 mg IM q. month Education: Educate patient about recreational drug use as an etiology Address patient's legal status Patient is on a 180 day petition revocation involuntary treatment hold. Patient will be given the opportunity to talk to her computer systems hardware analyst and the bellstand attendant Triston Santos MD Jul 05, 2016 12:44
--- NOTE | 2016-07-05 14:25 | PCM.PNMED ---
Subjective Date of Service Jul 05, 2016 Subjective No new complaints. Discussed with his psychiatrist Dr Santos, Exam Vital Signs Vital Sign - Last Date Time Temp Pulse Resp B/P Pulse Ox O2 Delivery O2 Flow Rate FiO2 07/04/16 12:24 36.4 97 16 86/56 07/03/16 13:33 94 Room Air Intake and Output 07/04/16 07/04/16 07/05/16 Cumulative From/Thru 15:00 23:00 07:00 07/01/16 18:53 - 07/04/16 06:06 Intake Total 5962 ml Output Total 4830 ml Balance 1132 ml Intake Oral 5446 ml IV Total 516 ml Output Urine Total 4830 ml # Voids 8 # Bowel Movements 0 Exam General: alert and oriented, breathing comfortably HEENT: Normocephalic, atraumatic. External ears without defect. Cardiovascular: Regular rate and rhythm Pulmonary: Clear to auscultation bilaterally . Normal respiratory effort with no use of accessory muscles. Abdomen: Bowel tones present. Soft, nontender, nondistended. Psychiatric: per psychiatry note, psychotic, IVs and Medications Medications Reviewed: Medications were reviewed in detail Lab and Diagnostics Result Diagram: 07/03/16 0754 07/03/16 0754 X-Rays, CTs and MRIs PROCEDURE: X-RAY CHEST ONE VIEW, PORTABLE ([id number]) INDICATIONS: dyspnea TECHNIQUE: One view of the chest was acquired. COMPARISON: [facility], CR, XR CHEST 2VW, 05/05/2016, 5:47. [facility], CR, XR CHEST 1VW (PORTABLE), 06/08/2016, 18:28. FINDINGS: Surgical changes and devices: None. Lungs and pleura: No pleural effusions or pneumothorax. Lungs are clear. Mediastinum: Mediastinal contours appear normal. Heart size is normal. Bones and chest wall: No suspicious bony lesions. Overlying soft tissues appear unremarkable. IMPRESSION: No definite acute cardiopulmonary process. Dictated by: Sami Reyes RRLuis Felipe Interpreted: Toshia Alva MD on 07/02/2016 at 8:50 Assessment & Plan 51 year old male with a history of schizophrenia, COPD, asthma, PTSD, depression , anxiety, and polysubstance abuse presented to the ED with shortness of breath. 1. Hyponatremia, present on admission, active, resolved -Serum sodium on admission was 121. The patient appears to have chronic hyponatremia based on prior admissions. 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 IVF discontinued. Last sodium 137 -Please check sodium twice a week while he is in mental health unit 2. psychosis, present on admission, active. -Patient with a long history of paranoid schizophrenia and reportedly has been noncompliant with medications for the past few months - He has a history of substance abuse, including methamphetamine. Patient received IM Zyprexa in ED. -Positive amphetamines and methamphetamines on urine tox dip in the emergency department -Continue 10 mg Zyprexa po daily - transferred to mental unit 3. Acute on chronic asthma exacerbation, present on admission, resolved - Patient initially reports dyspnea - DuoNeb when necessary 4. History of hepatitis C, active - Diagnosed during similar admission in January 2016 - Hepatitis C genotype 3 - Unknown if treatment ever pursued -Recommend outpatient follow-up 5. History of subclinical hyperthyroidism, not currently active - Diagnosed during similar admission in January 2016 - TSH 0.967 on admission, within normal limits Disposition : transferred to mental unit May need to check sodium twice weekly while he is inpatient. Care transferred to mental health unit team. Please call hospitalist team if any questions. Will sign off. VTE Mechanical Devices: Intermittant Pneumatic CD Resuscitation Status: CPR: Attempt Resuscitation Wes Georges MD Jul 05, 2016 14:25
[2016-07-05 17:50] VITALS: BP 106/59; PULSE 123; RESP 18
[2016-07-06] MEDS: risperiDONE 2 mg Tablet PO SCH ×2 (08:38→20:32)
[2016-07-06 12:11] VITALS: BP 95/67; PULSE 115; RESP 16
--- NOTE | 2016-07-06 13:02 | PCM.PNPSY ---
Subjective Date of Service Jul 06, 2016 Subjective I spent 10 minutes both reviewing his treatment plan and attempting to provide supportive and educational psychotherapy. I spent less than 50% of the time counseling the patient as this was all he could tolerate. Geraldo reports extreme dysphoria, denies auditory hallucinations or suicidal ideation. He states he is here against his will and is only came in for COPD. Although he is angry and defiant. His is not posturing in an aggressive manner nor is he lashing out at staff or other clients. The Staff reports that he has been isolative and is not participating well in one-to-one unit or group activities. He slept 9 hours. He denies medication side effects. Patient was not able to identify his medications nor what they were used to treat. He appeared to understand the need for medications by the questions he asked during our discussion. Current Medications Current Medications Clonazepam 1 mg BID PRN PO Last administered on 07/04/16 21:09; Admin Dose 1 MG; Start 07/04/16 at 13:40 Risperidone 2 mg BID PO Last administered on 07/06/16 08:38; Admin Dose 2 MG; Start 07/04/16 at 20:30 Mental Status Exam Vital Signs Vital Signs Date Time Temp Pulse Resp B/P Pulse Ox O2 Delivery O2 Flow Rate FiO2 07/06/16 12:11 36.3 115 16 95/67 Appearance: Disheveled Attitude: Guarded Behavior: Distractible Affect: Restricted, Labile Mood: Irritable, Dysthymic Thought Process/Associations: Loose Speech Production: Mumbled, Muter Speech Rate: Lags/Latency Thought Content: Negativistic, Suspicious Danger to Self/Suicidal Ideati: None Danger to Others: None Delusions: Paranoid (Endorses) Consciousness: Somnolent, Lethargic Orientation: Unable to assess Memory: Untestable Estimate Intellectual Function: Unable to assess Insight: Limited Judgement: Limited Result Diagram: 07/03/16 0754 07/03/16 0754 Mental Health Plan Client is a 51-year-old white male with a history of schizophrenia, polysubstance abuse, and COPD. He has been medication noncompliant in the past three months and has been indulging in IV methamphetamine habit. He is a poor historian and currently has multiple symptoms of psychosis with paranoia, disorganized thought, poor judgment and poor insight. He was detained on a 72 hour involuntary treatment hold and transferred to our unit. Today he was irritable and could only tolerate a brief interaction. He is no longer Posturing in an aggressive manner and is taking medications as prescribed. He appears to be slowly recovering from methamphetamine binge. [place] AXIS I 1. Substance induced psychosis, methamphetamine. 2. Schizophrenia, acute, paranoid. 3. Methamphetamine abuse. 4. Posttraumatic stress disorder. AXIS II Deferred. AXIS III 1. Chronic obstructive pulmonary disease. 2. Recent hyponatremia. 3. History of hypothyroidism. 4. Hepatitis C. AXIS IV Unknown. AXIS V Current global assessment of functioning equal to 30 Treatments Patient is being provided with a high degree of safety through the structure and active adult engagement. We will focus on developing improved coping skills and identifying stressors that may have led to current episode. We will attempt to: Integrate into therapeutic groups, milieu and individual therapy. Maintain in a closely monitored and structured unit Provide low-stimulation environment Obtain collateral data to assist in treatment planning Assess degree of lability of affect and impulse control Complete safety plan Decrease frequency of relapse and need for re-hospitalization Establish a consistent sleep pattern Medication effective in stabilization of mood and/or thought process Reduce the risk of imminent harm to self and/or others by providing a safe environment Tolerates medication without side effects Patient will be on the following psychiatric medications: Risperdal 2 mg twice a day, Seroquel 100 h.s. Klonopin 1 mg b.i.d. After stabilization on p.o.medications, we will attempt to transition to Invega 234 mg IM q. month Education: Educate patient about recreational drug use as an etiology Address patient's legal status Patient is on a 180 day petition revocation involuntary treatment hold. Patient will be given the opportunity to talk to her data center project manager and the platform power technician Triston Santos MD Jul 06, 2016 13:02
[2016-07-07] MEDS: risperiDONE 2 mg Tablet PO SCH ×2 (08:01→20:34)
[2016-07-07 12:41] VITALS: BP 115/64; PULSE 87; RESP 16
--- NOTE | 2016-07-07 12:46 | PCM.PNPSY ---
Subjective Date of Service Jul 07, 2016 Subjective I spent 10 minutes both reviewing his treatment plan and attempting to provide supportive and educational psychotherapy. I spent less than 50% of the time counseling the patient as this was all he could tolerate. Geraldo reports anger and frustration about being admitted here because he believes he only came in for breathing problems and COPD. He denies auditory hallucinations or suicidal ideation. He states he is here against his will. Although he is angry and defiant he is not posturing in an aggressive manner nor is he lashing out at staff or other clients. The Staff reports that he has been isolative and is not participating well in one-to-one unit or group activities. He slept 9 hours. He denies medication side effects. Patient was not able to identify his medications nor what they were used to treat. He appeared to understand the need for medications by the questions he asked during our discussion. Mental Status Exam Appearance: Disheveled Attitude: Guarded Behavior: Distractible Affect: Restricted, Labile Mood: Irritable, Dysthymic Thought Process/Associations: Loose Speech Production: Mumbled, Muter Speech Rate: Lags/Latency Thought Content: Negativistic, Suspicious Danger to Self/Suicidal Ideati: None Danger to Others: None Delusions: Paranoid (Endorses) Consciousness: Somnolent, Lethargic Orientation: Unable to assess Memory: Untestable Estimate Intellectual Function: Unable to assess Insight: Limited Judgement: Limited Result Diagram: 07/03/16 0754 07/03/16 0754 Mental Health Plan Client is a 51-year-old white male with a history of schizophrenia, polysubstance abuse, and COPD. He has been medication noncompliant in the past three months and has been indulging in IV methamphetamine habit. He is a poor historian and currently has multiple symptoms of psychosis with paranoia, disorganized thought, poor judgment and poor insight. He was detained on a 72 hour involuntary treatment hold and transferred to our unit. Today he was irritable and could only tolerate a brief interaction. He is no longer Posturing in an aggressive manner and is taking medications as prescribed. He appears to be slowly recovering from methamphetamine binge. [place] AXIS I 1. Substance induced psychosis, methamphetamine. 2. Schizophrenia, acute, paranoid. 3. Methamphetamine abuse. 4. Posttraumatic stress disorder. AXIS II Deferred. AXIS III 1. Chronic obstructive pulmonary disease. 2. Recent hyponatremia. 3. History of hypothyroidism. 4. Hepatitis C. AXIS IV Unknown. AXIS V Current global assessment of functioning equal to 30 Treatments Patient is being provided with a high degree of safety through the structure and active adult engagement. We will focus on developing improved coping skills and identifying stressors that may have led to current episode. We will attempt to: Integrate into therapeutic groups, milieu and individual therapy. Maintain in a closely monitored and structured unit Provide low-stimulation environment Obtain collateral data to assist in treatment planning Assess degree of lability of affect and impulse control Complete safety plan Decrease frequency of relapse and need for re-hospitalization Establish a consistent sleep pattern Medication effective in stabilization of mood and/or thought process Reduce the risk of imminent harm to self and/or others by providing a safe environment Tolerates medication without side effects Patient will be on the following psychiatric medications: Risperdal 2 mg twice a day Seroquel 100 h.s. Klonopin 1 mg b.i.d. After stabilization on p.o.medications, we will attempt to transition to Invega 234 mg IM q. month Education: Educate patient about recreational drug use as an etiology Address patient's legal status Patient is on a 180 day petition revocation involuntary treatment hold. Patient will be given the opportunity to talk to her retail leasing agent and the dope edger Triston Santos MD Jul 07, 2016 12:46
[2016-07-07] MEDS: LORazepam 1 mg Tablet PO PRN (15:46)
[2016-07-08] MEDS: Albuterol-Ipratropium 3 mL Inhalation Solution NEB PRN (04:15)
[2016-07-08] MEDS: risperiDONE 2 mg Tablet PO SCH ×2 (08:30→20:30)
--- NOTE | 2016-07-08 16:24 | PROG NOTE ---
[address] [address] PROGRESS NOTE PATIENT: FREEDOM GARAY : 1965 MR#: [id number] ADMIT: 07/01/2016 JOB ID: [id number] DATE: 07/08/2016 CHIEF COMPLAINT: "I'm not taking that medicine, I'm not crazy." HISTORY OF PRESENT ILLNESS: As stated above, the patient met with myself and the medical student to review his current status. The patient appeared to be preoccupied throughout and was mumbling throughout the course of the conversation. He made no direct eye contact despite multiple attempts of engagement with myself. He continues to appear to be responding to internal stimulus. He is rather dysphoric, irritable, labile. He reportedly had several episodes of seclusion over the weekend and one forced medication intervention. OBJECTIVE: On mental status exam, the patient, as noted above, is quite paranoid. He maintained no eye contact. He is fairly disheveled and wearing a hoodie over his head. He reportedly has refused to cooperate with staff and has declined his medication of Risperdal this morning. His speech is pressured. His mood is dysphoric, irritable, and labile. Affect is incongruent. His thought process shows evidence of racing thoughts, loose and disconnected thinking. His thought content, he denied any evidence of suicidal ideation, intent, or plan. He is quite agitated and has made verbal threats towards others. He appears to be responding to internal stimulus but he indicates that he is not crazy. He was alert. Orientation was untestable. Insight and judgment are poor. PHYSICAL EXAMINATION: Vital signs: Current temperature is 36.2, pulse 87, respirations 16, BP 115/64. MEDICATION REVIEW: Includes: 1. Risperdal 2 mg b.i.d. 2. Klonopin 1 mg b.i.d. p.r.n. 3. Seroquel 100 mg q.h.s. p.r.n. 4. Benadryl 50 mg p.o. or IM q.4 h. p.r.n. 5. Haldol 10 mg p.o. or IM. ASSESSMENT: [place] I. 1. Schizophrenia paranoid type. 2. Polysubstance use disorder including methamphetamines [place] II. Deferred. [place] III. 1. History of chronic obstructive pulmonary disease. 2. History of hyponatremia. 3. History of hypothyroidism. 4. Hepatitis C. [place] IV. Stressors are noted for chronic mental health issues, chronic substance abuse issues. [place] V. Global Assessment of Functioning current 30. PLAN: 1. Recommendations for continuation of all medications noted. 2. Recommendations for 2nd opinion to be signed for necessary interventions of forced medications. 3. Applications for petition to be filed for revocation of LR 180 to be filed tomorrow.
[2016-07-09] MEDS: risperiDONE 2 mg Tablet PO SCH ×2 (08:29→19:59)
[2016-07-09] MEDS: LORazepam 1 mg Tablet PO PRN (08:31)
[2016-07-09 10:35] VITALS: BP 111/63; PULSE 98; RESP 16
[2016-07-09] MEDS ORDERED: Paliperidone Palmitate 234 mg/1.5 mL Inj (NC) IM SCH (11:45)
--- NOTE | 2016-07-09 12:30 | PROG NOTE ---
[address] [address] PROGRESS NOTE PATIENT: FREEDOM GARAY : 1965 MR#: [id number] ADMIT: 07/01/2016 JOB ID: [id number] DATE: 07/09/2016 CHIEF COMPLAINT: "I don't want to take a shot. I did take my Risperdal this morning." HISTORY OF PRESENT ILLNESS: As stated above the patient has declined utilization of Invega Sustenna despite encouragement from myself, additional staff members, and his previous care coordination manager through [facility] The patient indicated that he did take his Risperdal this morning but continues to be somewhat paranoid and agitated and isolative. He made intermittent eye contact with myself this morning and appeared to be much more willing to cooperate with the conversation. OBJECTIVE: On mental status exam, as noted above the patient did make intermittent eye contact. He denied any evidence of current suicidal, homicidal ideation. His mood was notably mildly dysphoric. Affect was irritable, labile. His thought process shows no evidence of racing thoughts. He appears to be distracted and responding to internal stimulus. He had no evidence of suicidal or homicidal ideation. There was continuation of paranoia. He denied any evidence of hallucinations. He continues to mumble underneath his breath throughout the course of conversation. He was alert, oriented to time and place. His attention and concentration are poor. Insight and judgment are poor. PHYSICAL EXAMINATION: Vital signs are current: Temperature is 36.2, pulse 98, respirations 16, BP 111/63. MEDICATION REVIEW: Includes Risperdal 2 mg b.i.d., Ativan 1-2 mg q.4 h. p.r.n., and p.r.n. doses of Haldol and Benadryl. ASSESSMENT: [place] I: 1. Schizophrenia, paranoid type. 2. Methamphetamine use disorder, intermittent, in a controlled environment. [place] II: Deferred. [place] III: None. [place] IV: Stressors are noted for chronic mental health issues, chronic substance abuse issues. [place] V: Global Assessment of Functioning of current 35. PLAN: 1. Recommendations for initiation of Invega Sustenna 234 mg q.30 days, however the patient has declined at this time. 2. Continuation of all other medications noted. 3. Application for revocation of LR 180 based on the patient's significant decompensation with the court date tomorrow.
[2016-07-10 10:08] VITALS: BP 119/72; PULSE 77; RESP 16
[2016-07-10] MEDS: risperiDONE 2 mg Tablet PO SCH ×3 (10:29→20:30)
--- NOTE | 2016-07-10 12:01 | PROG NOTE ---
[address] [address] PROGRESS NOTE PATIENT: FREEDOM GARAY : 1965 MR#: [id number] ADMIT: 07/01/2016 JOB ID: [id number] DATE: 07/10/2016 CHIEF COMPLAINT: "I am not mentally ill, but I took the medicine because I know that it will help me get out of here." This per patient report. HISTORY OF PRESENT ILLNESS: As stated above, the patient met with myself and the medical student and showed significant clearing of his mentation. The patient maintained good eye contact throughout and joked with myself about his ongoing life circumstances. The patient reports that he is currently homeless, living with friends, but he indicated that his family caseworker, Danielle through [facility], is looking for additional services. He reports that he was willing to initiate injectable Invega Sustenna yesterday and states that he knows that it will help him to get out of the hospital so that he can get back to his normal life. 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 He remarked throughout the course of conversation about his previous athleticism with participation in various track and field events, running for [facility], and accomplishments in [employer] and 1500 meters. The patient identified that he currently maintains his activity through walking throughout the community of [place]. He identifies that he has resided at the [facility] in the past and stated that he realizes that he does not want to be homeless for very long. He was very cooperative, congenial, and thankful for his current hospitalization. OBJECTIVE: On mental status exam, he showed significant improvement with overall interaction. He smiled appropriately, was casually dressed, and showed significant improvement with self care. His speech was less confused and tangential. He was able to track and follow with significant improvement. His mood was notably neutral. His affect was congruent. His thought process showed evidence of slowing of mentation. No evidence of tangential reference. He continued to be mildly loose at times but was able to retract and redirect appropriately. His thought content: He denied any evidence of suicidal or homicidal ideation. He continues to identify absence of hallucinations, delusions, but does appear to be responding to internal stimulus. He openly identified that he began hearing voices sometime in his youth, indicating that he felt that he would often hear the voice of God. He indicated in 1993 he was diagnosed with schizophrenia. He was alert, oriented to time and place. His attention and concentration are seemingly improved. Insight and judgment are gaining. PHYSICAL EXAMINATION: All vital signs are current: Temperature is 36.5, pulse 77, respirations 16, BP 119/72. MEDICATION REVIEW: Includes Risperdal 2 mg b.i.d. He received his 1st dose of Invega Sustenna yesterday at 234 mg. Ativan 1-2 mg q.4 h., p.r.n. Haldol 10 mg q.4 h. p.o. or IM, Benadryl 50 mg p.o. or IM q.4 h. for EPS. ASSESSMENT: [place] I: 1. Schizophrenia, paranoid type. 2. Methamphetamine use disorder, chronic. [place] II: Deferred. [place] III: None. [place] IV: Stressors are noted for chronic mental health issues, chronic substance use issues. [place] V: Global Assessment of Functioning of current 35. PLAN: 1. Recommendations for continuance as per court intervention with possible discharge within the next week due to the patient's significant improvement with clarity of thought and ability to care for himself. 2. Continuation of all medications as noted.
[2016-07-10] MEDS: diphenhydrAMINE 50 mg Capsule PO PRN (17:30)
[2016-07-10] MEDS: LORazepam 1 mg Tablet PO PRN (20:30)
[2016-07-11] MEDS: risperiDONE 2 mg Tablet PO SCH ×3 (08:30→20:30)
[2016-07-11 08:46] VITALS: BP 95/51; PULSE 70; RESP 16
--- NOTE | 2016-07-11 13:04 | PROG NOTE ---
[address] [address] PROGRESS NOTE PATIENT: FREEDOM GARAY : 1965 MR#: [id number] ADMIT: 07/01/2016 JOB ID: [id number] DATE: 07/11/2016 CHIEF COMPLAINT: "I hope they find a place for me to live." HISTORY OF PRESENT ILLNESS: As stated above, the patient did meet with myself and the medical student to review his current status of progress. The patient reportedly has declined administration of Risperdal this morning after receiving doses yesterday along with Invega Sustenna. The patient reports that he feels that he does not need to take the medication and was encouraged to continue on the medication until his second injection which is scheduled on Friday. He reports that he would like to look at discharge from the hospital and indicated that he feels confident that he can live with friends or on the street in a camp ground. He indicates that he feels that his perfumer at [facility] is in the process of looking for a home for him and that he is confident that he will continue to receive services. OBJECTIVE: On mental status examination, he was cooperative, polite. He maintained good eye contact. He denied any evidence of current difficulties. He indicated that he chose not to take his Risperdal this morning indicating that he does not feel that he needs to be on the medication, that he is not mentally ill. His mood is neutral. His affect is congruent. His thought process showed no evidence of racing thoughts, flight of ideas. He is much clearer on conversation and is able to track and follow. He denies any evidence of current suicidal or homicidal ideation. There was no evidence of paranoia at this time. He denied any evidence of hallucinations or delusions. He is alert, oriented to time and place. His attention and concentration intact. Memory intact in the short term, long term care pharmacist, recent. Insight and judgment are fair. PHYSICAL EXAM: Vital signs are current. Temperature is 36.8, pulse 70, respirations 16, BP 95/51. CURRENT MEDICATION: Includes: 1. Risperdal 2 mg b.i.d. 2. He received his injection of Invega Sustenna on the , 234 mg. Next is scheduled on July 14. 3. Ativan 1-2 mg q.4 hours p.r.n. for agitation. 4. Albuterol inhaler p.r.n. 5. Haldol 10 mg q.4 hours p.r.n. with Benadryl given yesterday afternoon at 5 o'clock. ASSESSMENT: AXIS I 1. Schizophrenia, paranoid type. 2. Polysubstance use disorder with methamphetamines and opiates. AXIS II Deferred. AXIS III History of chronic obstructive pulmonary disease. AXIS IV Stressors are noted for chronic substance abuse, chronic mental health issues. AXIS V Global Assessment of Functioning of current 35. PLAN: 1. Recommendations for follow up injection of Invega Sustenna 156 mg on July 14. 2. Continuation of administration of Risperdal was encouraged, however, ultimately the patient has declined. 3. Continuation of p.r.n. doses of Haldol, Benadryl, Ativan.
[2016-07-11] MEDS: Albuterol-Ipratropium 3 mL Inhalation Solution NEB PRN (16:46)
[2016-07-11] MEDS: LORazepam 1 mg Tablet PO PRN (21:23)
[2016-07-11] MEDS: diphenhydrAMINE 50 mg Capsule PO PRN (21:24)
[2016-07-12] MEDS: risperiDONE 2 mg Tablet PO SCH ×2 (08:30→20:30)
[2016-07-12 08:35] VITALS: BP 91/61; PULSE 70; RESP 16
[2016-07-12] MEDS: LORazepam 1 mg Tablet PO PRN (10:24)
--- NOTE | 2016-07-12 13:06 | PROG NOTE ---
[address] [address] PROGRESS NOTE PATIENT: FREEDOM GARAY : 1965 MR#: [id number] ADMIT: 07/01/2016 JOB ID: [id number] DATE: 07/12/2016 CHIEF COMPLAINT: "Is there any way I can leave tomorrow. I need to get some food from the food bank and they are closed on Friday." This per patient report. HISTORY OF PRESENT ILLNESS: As stated above, the patient identified a request to actually discharge tomorrow. He reportedly has been much more appropriate today per staff report with open identification of a willingness to continue with his current medication regimens. The patient reportedly indicates that he would like to speak with his mother about getting some gracia as well and indicates that he does have a few friends that he is going to be in contact for housing assistance. He denied any evidence of acute distress at this time. He made good eye contact. He smiled appropriately with myself. MENTAL STATUS EXAMINATION: General appearance: He was bright, cooperative, interactive. Casually dressed. He was upbeat in his interaction. His speech was of normal tone frequency, and volume. His mood was neutral. Affect was full and bright. His thought process showed no evidence of random flight of ideas, loose or disconnection of thoughts. Thought content: He denied any evidence of current suicidal, homicidal ideation. He was alert, oriented to person, place, time, situation. There was no essence of paranoia on interaction with myself. No evidence of suicidal or homicidal ideation as noted. Insight and judgment are gaining. PHYSICAL EXAM: Vital signs of current. Temperature is 36.9, pulse 70, respirations 16, BP 95/51. This is a value from yesterday, please note. MEDICATION REVIEW: Includes: 1. Invega Sustenna last injection on the with scheduled injection to be given tomorrow on the , one day early. 2. Risperdal 2 mg b.i.d. The patient again refused oral doses this morning with open identification that he feels that he does not need to be on oral doses with injections. I have chosen not to argue this point with the patient at this time. 3. P.r.n. doses of Benadryl and Haldol, last given on the . 4. Albuterol inhaler last used on the . ASSESSMENT: AXIS I 1. Schizophrenia, paranoid type. 2. Polysubstance use disorder, most recent usage methamphetamine and marijuana. AXIS II Deferred. AXIS III History of chronic obstructive pulmonary disease. AXIS IV Stressors are noted for chronic mental health issues, chronic substance abuse issues. AXIS V Global assessment of functioning of current 40. PLANS: 1. Recommendations for follow up injection of Invega Sustenna 234 mg to be given again tomorrow. 2. Recommendations for discontinuation of oral dosing of Risperdal based on the patient's willingness to oblige to injections. However, he has been informed that normal regimens are to continue the oral doses of Risperdal for at least one month. 3. The patient has been encouraged to abstain from any further usage of substances based on his current resolution of substance related mood dysphoria. The patient indicated that he would continue with his case picker at [facility] and ongoing medication management. 4. Follow up discharge tomorrow.
[2016-07-12 18:21] VITALS: PULSE 85; RESP 20; O2SAT 98
[2016-07-12] MEDS: Albuterol-Ipratropium 3 mL Inhalation Solution NEB PRN (18:21)
[2016-07-13] MEDS: Albuterol-Ipratropium 3 mL Inhalation Solution NEB PRN (06:55)
[2016-07-13 07:25] VITALS: BP 105/71; PULSE 87; RESP 16
[2016-07-13] MEDS: risperiDONE 2 mg Tablet PO SCH (08:05)
[2016-07-13] MEDS ORDERED: Paliperidone Palmitate 234 mg/1.5 mL Inj (NC) IM SCH (10:15)
--- NOTE | 2016-07-13 12:34 | PCM.DIMED ---
Discharge Instructions Date of Service Jul 13, 2016 Dates of Hospitalization Jul 01, 2016 at 23:32 Discharge Diagnosis Discharge Diagnosis Schizophrenia Paranoid type Polysubstance abuse, including methamphetamine and THC Diet No restrictions Activity No restrictions Roman Chery DO Jul 13, 2016 12:34
[2016-07-13] MEDS ORDERED: KLO5T PO (12:35)
[2016-07-13] MEDS ORDERED: PALI156D IM (12:35)
[2016-07-13] MEDS ORDERED: ALBU8.5H2 INHALATION (12:35)
[2016-07-13] MEDS ORDERED: Albuterol HFA 60 Puff 8 Gm Inhaler INHALATION PRN (12:35)
[2016-07-13] MEDS: diphenhydrAMINE 50 mg Capsule PO PRN (13:28)
[2016-07-13] MEDS ORDERED: Paliperidone Palmitate 156 mg/mL Inj (NC) IM SCH (14:05)
--- NOTE | 2016-07-14 18:03 | DIS ---
[address] [address] DISCHARGE SUMMARY PATIENT: FREEDOM GARAY : 1965 MR#: [id number] ADMIT: 07/01/2016 JOB ID: [id number] DIS: 07/13/2016 ADMITTING DIAGNOSES: [place] I1. Schizophrenia, paranoid type. 2. Substance-induced psychoses, methamphetamine. 3. Methamphetamine use disorder. 4. Posttraumatic stress disorder, chronic. [place] IIDeferred. [place] III1. Chronic obstructive pulmonary disease. 2. Recent hyponatremia. 3. History of hypothyroidism. 4. Hepatitis C. [place] IVUnknown. [place] VGlobal assessment of functioning current 20. DISCHARGE DIAGNOSES: [place] I1. Schizophrenia, paranoid type. 2. polysubstance use disorder including methamphetamines and THC. [place] IIDeferred. [place] III1. Chronic obstructive pulmonary disease. 2. Hepatitis C. [place] IVStressors are noted for chronic substance use issues, chronic mental health issues with noncompliance. [place] VGlobal assessment of functioning current 50. REASON FOR ADMISSION: Patient was a 51-year-old male admitted with acute psychoses with combinatory presentation of noncompliance with medications and methamphetamine use. During the course of hospitalization, the patient eventually stabilized with utilization of scheduled doses of Risperdal, Invega Sustenna at 234 mg and 156 mg and also reinstitution of low-dose Klonopin at 0.5 mg b.i.d. Throughout hospital course, the patient participated in both individual and group therapy complements and had significant clearing of his mentation after approximately four days of detox and withdrawal from methamphetamine usage. He openly admitted to a willingness to continue with his outpatient care provider team through [facility] and discussion was held with various the treatment team members about the importance of dealing with positive relationship and encouragement with the patient to maintain in his current cooperation with medications and interventions. On the day of discharge, the patient did request to be discharged to the care of friends. Also the fact that he would be staying with his stepmother on both Friday and Friday evening and has assured that he would be present with his shelter case manager, Suad, on Friday morning to pursue further housing options. The patient showed no evidence of imminent danger and it was felt that the patient met full criteria for discharge. He affirmed that he would be staying with friends throughout the daytime hours and also had a place to actually stay over the evening hours, accordingly. CONDITION AT TIME OF DISCHARGE: General appearance: He was bright, cooperative, interactive. He maintained good eye contact. He appeared to be very reliable in his presentation despite his long-term history of polysubstance use. His speech was of normal tone, frequency, and volume. His mood was neutral. Affect was congruent. His thought process showed no evidence of racing thoughts, flight of ideas, loose or disconnected thinking. Thought content: He denied any evidence of current suicidal, homicidal ideation. He denied any acute disturbance of hallucinations or delusions. He was alert, oriented to time and place. His attention and concentration intact. Memory intact in the short term, terminal worker, recent. Insight and judgment were fair. DISCHARGE PLANS: 1. Invega Sustenna injection given today at 156 mg. Next injection would be scheduled for August 13. One month of medication would be faxed over to [facility] to be picked up by [facility] service personnel on Friday. 2. Continuation of Klonopin at low-dose therapy of 0.5 mg, one month supply, no refills. Reason for usage anti anxiety. Again, [facility] staff will be alerted to picker box operator on Friday. 3. Patient will be given hospital supply of inhaler Proventil 2 puffs q.4 h. p.r.n. for dyspnea. 4. The patient will follow up with his outpatient shelter case manager, Suad, on Friday morning at 10 o'clock a.m. for alternatives of housing. 5. Patient was encouraged to maintain a clean and sober lifestyle. 6. Patient will be staying through the weekend hours with his stepmother overnight and staying with friends throughout the daytime hours.
[2016-08-12] MEDS ORDERED: Paliperidone Palmitate 234 mg/1.5 mL Inj (NC) IM SCH (10:15)
== END 2016-07-13 14:45 | disposition home or self-care (01) | DRG 641 ==
LOC: SED 18:45 → OBSVTOIN 23:32 → OSC 23:32 → INTOOBSV 23:32 → MHC 07-03 17:43
PROVIDERS: ADMIT Internal Medicine; ATTEND Internal Medicine
DX: E87.1 Hypo-osmolality and hyponatremia (principal); F20.0 Paranoid schizophrenia; J45.901 Unspecified asthma with (acute) exacerbation; J44.9 Chronic obstructive pulmonary disease, unspecified; F15.959 Other stimulant use, unspecified with stimulant-induced psychotic disorder, unspecified; F43.12 Post-traumatic stress disorder, chronic; F17.210 Nicotine dependence, cigarettes, uncomplicated

== ENCOUNTER 2016-07-23 09:16 | Emergency (ER) | payer MEDICARE, MEDICAID ==
[~2016-07-23] VITALS: Ht 180.3 cm; Wt 85.9 kg
[~2016-07-23 09:16] MED LIST changes: -IPRA4AER IH; -LEVO750T9 PO; -OLAN5TAB PO; -PALI234D IM; -PRE20 PO; -TIOT18CA3 IH
[2016-07-23 09:22] VITALS: BP 109/68; PULSE 75; RESP 16; O2SAT 100
--- NOTE | 2016-07-23 09:23 | ED.REPORT ---
HPI-Rash / Abscess Date of Service Jul 23, 2016 ED Provider: Guru Tabor MD 51 year old male with a history of schizophrenia and polysubstance IV drug use, hep C, COPD and asthma, who presents to the ER with L medial forearm abscess onset 5 days ago following IV meth use. This has been progressively worsening since onset. Pt was recently hospitalized and discharged July 13 for schizophrenia. He is accompanied by his machine adjuster leader case trim for [employer] who is concerned due to increasing hallucinations and delusions. Nursing Notes Stated Complaint: ABSCESS ON INJECTION SITE Chief Complaint: Skin Rash/Abscess Nursing Notes Reviewed: Yes Allergies: Coded Allergies: No Known Allergies (Verified Allergy, Unknown, 07/01/16) haloperidol (Verified Adverse Reaction, Intermediate, MAKES ME ANGRY, ) Scheduled Clonazepam (Clonazepam) 0.5 Mg Tablet 0.5 MG PO BID Paliperidone Palmitate Inj (Invega Sustenna) 156 Mg/1 Ml Syringe 156 MG IM Q30D Scheduled PRN Albuterol HFA (Proair HFA) 8.5 Gm Hfa.aer.ad 2 PUFFS INHALATION Q4H PRN PRN For Shortness of Breath General Time Seen by MD: 09:21 Chief Complaint Abscess Hx Obtained From: Patient Arrived By: Walk-in Onset Occurred: 5 days ago Symptom Duration: Since onset Location: : Forearm Quality: Painful Severity: Current: Moderate Associated with: Denies Fever, Denies Red streaking, Denies Vomiting Pertinent Negative: Relieved by nothing Past Medical History Past Medical History Notes: PCP: Dr. Mason Past Medical History Schizophrenia Polysubstance dependence in past per old records Asthma COPD PTSD, Depression, Anxiety Past Surgical History Reviewed, not relevant Smoking History Current Every Day Smoker Social History Violent and antisocial at times with threatening behavior and a history of threatening and stalking ER staff. Alcohol Use: "Social" Drug Use: IV drugs, Meth, THC Other Social History: Homeless Ambulatory Status Independent Review of Systems Constitutional: Denies: Chills, Fever Respiratory: Denies: Shortness of breath Cardiovascular: Denies: Chest pain GI: Denies: Abdominal pain, Diarrhea, Vomiting Musculoskeletal: Reports: Extremity pain Skin: Reports Rash, Reports Swelling Complete sys rev & neg: except as marked. Physical Exam Initial Vital Signs Vital Signs (First) Date Time Temp Pulse Resp B/P Pulse Ox O2 Delivery O2 Flow Rate FiO2 07/23/16 09:22 36 75 16 109/68 100 Room Air Initial VS: Reviewed Head / Eyes: Atraumatic, Normocephalic, PERRL ENT: Mucous membranes moist, Conjunctiva normal, No scleral icterus Neck: Supple, Full range of motion Respiratory: Breath sounds normal, Clear to auscultation, No respiratory distress Cardiovascular: Regular rate & rhythm, Heart sounds normal, Intact distal pulses Abdomen / GI: Soft, Non-tender, No distention Neurologic: Alert, Oriented General/Constitutional: Awake, Alert Skin: Warm, Dry Abscess Notes: 3cm x2.5 cm erythematous mass ballotable and consistent with abscess. Bedside US shows fluid filled abscess. Location AC fossa. Procedures Incision & Drainage Abscess Time: 10:00 Procedure Performed by: ED physician Consent / Setup / Site Prep: Consent from patient, Time-out performed, Hand hygiene observed, Stand sterile technique Location of Abscess: L AC fossa Skin Preparation Agent: Other (Dermal wound cleanser) Local Anesthesia: Lidocaine w epi 1% Incised Abscess with Scalpel: #11 Pus Drained: Medium, Bloody Irrigation: Yes, Copious Post-Procedure / Complications: Packing placed, Dressing applied, No complications, Condition improved, Tolerated procedure well, Patient stable Re-Eval/Medical Decision Med Decision/Clinical Course Patient became agitated prior to the part because he was afraid that he might be detained to the [facility]. His dining room manager was concerned that he was in violation of his less restrictive order because he is using methamphetamines and is homeless, but the patient really has no desire to be in the hospital and does not endorse any intent to self-harm. I did not see that it was necessary to detain him or force him to do anything Re-Evaluation/Progress #1: Time of Eval: 11:05 Re-Evaluation/Progress Note: Pleasantly agitated. Doesn't want to stay, but case work aide would like him to stay. Violating because of homelessness and meth use. Re-Evaluation/Progress #2: Time of Eval: 12:00 Re-Evaluation/Progress Note: Pt evaluated by ALARM MECHANISM ADJUSTER. Discharge instructions discussed with pt. He left prior to recieving those instructions. Counseled Regarding: Diagnosis, Need for follow-up Discharge & Departure Impression: Primary Impression: Abscess of left forearm Disposition: Home Discharge Condition All VS Reviewed: Yes Condition: Stable Patient Instructions: Abscess (ED) Additional Instructions: Change bandage once daily. Keep the packing in place until tomorrow. Return to the ER for signs of infection (redness, pain, inflammation). Follow up with your PCP. Referrals: Tyrell Mason MD (PCP) Scribe Attestation Portions of this note were transcribed by Shonda Chand. I, (Dr. Guru Tabor) personally performed the history, physical exam and medical decision-making; I reviewed and confirmed the accuracy of the information in the transcribed note. Signed by: Shonda Chand. Scribe, 07/23/2016, 1340 copies to: Tyrell Mason MD, Kirk H MD Jul 23, 2016 09:23 Shonda Chand Jul 23, 2016 09:57
[2016-07-23] MEDS ORDERED: Lidocaine 1%-Epi 1:100,000 20 mL Inj ONE (10:01)
== END 2016-07-23 11:05 | disposition home or self-care (01) ==
LOC: SED 09:16
DX: L02.414 Cutaneous abscess of left upper limb (principal); J45.909 Unspecified asthma, uncomplicated; J44.9 Chronic obstructive pulmonary disease, unspecified; F20.9 Schizophrenia, unspecified; F17.200 Nicotine dependence, unspecified, uncomplicated; Z59.0 Homelessness; Z88.8 Allergy status to other drugs, medicaments and biological substances

== ENCOUNTER 2016-08-04 19:55 | Emergency (ER) | payer MEDICARE, MEDICAID ==
[~2016-08-04] VITALS: Ht 180.3 cm; Wt 85.5 kg
[2016-08-04 20:02] VITALS: BP 118/75; PULSE 77; RESP 17; O2SAT 99
--- NOTE | 2016-08-04 20:11 | ED.REPORT ---
HPI-Dyspnea / Wheezing Date of Service Aug 04, 2016 ED Provider: Sunny Limon DO Pt is a 51 y.o. male with a hx of asthma and COPD who presents to the ED via EMS c/o wheezing onset today. Pt reports associated SOB. Per EMS they had responded to pt earlier today and administered a nebulizer but pt was not transported to the ED at that time. Nursing Notes Stated Complaint: WHEEZING Chief Complaint: Respiratory Complaints Nursing Notes Reviewed: Yes Allergies: Coded Allergies: No Known Allergies (Verified Allergy, Unknown, 07/01/16) haloperidol (Verified Adverse Reaction, Intermediate, MAKES ME ANGRY, ) Scheduled Clonazepam (Clonazepam) 0.5 Mg Tablet 0.5 MG PO BID Paliperidone Palmitate Inj (Invega Sustenna) 156 Mg/1 Ml Syringe 156 MG IM Q30D Scheduled PRN Albuterol HFA (Proair HFA) 8.5 Gm Hfa.aer.ad 2 PUFFS INHALATION Q4H PRN PRN For Shortness of Breath General Time Seen by MD: 20:10 Chief Complaint Wheezing Hx Obtained From: Patient Arrived By: Ambulance Sudden in Onset?: Yes Symptom Duration: Since onset Location: : None Severity: Current: No pain currently Severity: Maximum: No pain Past Medical History Past Medical History Notes: PCP: Dr. Mason Past Medical History Schizophrenia Polysubstance dependence in past per old records Asthma COPD PTSD, Depression, Anxiety Past Surgical History Reviewed, not relevant Smoking History Current Every Day Smoker Social History Violent and antisocial at times with threatening behavior and a history of threatening and stalking ER staff. Alcohol Use: "Social" Drug Use: IV drugs, Meth, THC Other Social History: Homeless Ambulatory Status Independent Review of Systems Constitutional: Denies: Chills, Fever Respiratory: Reports: Shortness of breath, Wheezing Complete sys rev & neg: except as marked. GI: Denies: Nausea, Vomiting Physical Exam Initial Vital Signs Vital Signs (First) Date Time Temp Pulse Resp B/P Pulse Ox O2 Delivery O2 Flow Rate FiO2 08/04/16 20:02 36.6 77 17 118/75 99 08/04/16 20:35 Room Air Initial VS: Reviewed Head / Eyes: Atraumatic, Normocephalic Abdomen / GI: No distention Extremities: Vascular intact, Neuro intact Skin: Warm, Dry, No cyanosis Neurologic: Alert, Oriented, Nonfocal Psychiatric: Mood/affect normal, Behavior normal, Normal thought content General/Constitutional: Awake, Alert, Not toxic appearing Distress / Hydration: Positive: Distress moderate Neck: Atraumatic Respiratory / Chest: Atraumatic Resp Distress / Stridor: Positive: Resp distress moderate Wheezing / Retractions: Positive: Wheezing expiratory (diffuse) Cardiovascular: Heart rate NL, Regular rhythm, Heart sounds NL, Peripheral circulation NL Interpretation & Diagnostics Lab Results Interpretation Result Diagram: 08/04/16202708/04/162027 Test 08/04/16 20:28 08/05/16 00:40 White Blood Count 9.3th/mm3 (3.8-10.1) Red Blood Count 4.55mil/mm3 (4.40-5.80) Hemoglobin 13.1g/dL (13.8-17.2) Hematocrit 38.7% (41.0-50.0) Mean Corpuscular Volume 85.1fL (81-100) Mean Corpuscular Hemoglobin 28.8pg (27.0-35.0) Mean Corpuscular Hemoglobin Concent 33.9% (32.0-37.0) Red Cell Distribution Width 13.3% (12.3-15.4) Platelet Count 252bil/L (150-400) Neutrophils (%) (Auto) 59.6% (40-74) Lymphocytes (%) (Auto) 20.0% (14-46) Monocytes (%) (Auto) 9.6% (4-12) Eosinophils (%) (Auto) 9.3% (0-5) Basophils (%) (Auto) 1.3% (0-3) Sodium Level 129mEq/L (134-144) Potassium Level 4.0mEq/L (3.5-5.2) Chloride Level 93mEq/L (97-108) Carbon Dioxide Level 23mmol/L (18-29) Blood Urea Nitrogen 14mg/dL (6-24) Creatinine 1.11mg/dL (0.76-1.27) Estimat Glomerular Filtration Rate 75mL/min (>59) Glucose Level 127mg/dL (60-99) Calcium Level 8.9mg/dL (8.5-10.1) Total Bilirubin 0.5mg/dL (0.0-1.2) Aspartate Amino Transf (AST/SGOT) 41U/L (0-50) Alanine Aminotransferase (ALT/SGPT) 37U/L (0-44) Alkaline Phosphatase 76U/L (25-150) Total Protein 6.7g/dL (6.4-8.4) Albumin 3.7g/dL (3.4-5.0) Hold Ramírez Top Tube Received (Received) D-Dimer < 0.50mg/L FEU (<0.50) Troponin T 0.010ug/L (0.0-0.011) ECG Interpretation ECG Interpretation: Benign early repol pattern. Time: 20:23 Interpreted by: ED physician Normal ECG Interpretation: Normal rate (79) X-Ray Chest Interpretation Chest Xray Interpretation: IMPRESSION: No acute cardiopulmonary disease. Dictated by: Kami Ritchie M.D. on 08/04/2016 at 21:12 Approved by: Kami Ritchie M.D. on 08/04/2016 at 21:14 Re-Eval/Medical Decision Med Decision/Clinical Course Myocardial infarction, congestive heart failure and pulmonary emboli ruled out based on history, physical, pretest probability and diagnostics. Geraldo was medicated and at discharge time his lungs were clear. His respiratory rate was 16 and he was not hypoxic. We have provided him with albuterol. I will place him on an inhaled steroid as well as prednisone. Recommend outpatient follow- up and smoking cessation. Source of Hx: Old records Re-Evaluation/Progress #1: Time of Eval: 23:00 Patient Status: Condition improved Re-Evaluation/Progress Note: Pt rechecked. Pt is feeling improved. Re-Evaluation/Progress #2: Time of Eval: 01:42 )( Re-Eval Resp / Chest: Breath sounds normal Patient Status: Condition improved Re-Evaluation/Progress Note: Pt rechecked. Pt is resting comfortably and has an O2 sat of 100. Counseled Regarding: Diagnosis, Lab results, Need for follow-up, When/why to return to ED Discharge & Departure Impression: Primary Impression: COPD with acute exacerbation Disposition: Home Discharge Condition All VS Reviewed: Yes Condition: Improved Patient Instructions: Chronic Obstructive Pulmonary Disease (ED) Additional Instructions: You were seen her today for an acute exacerbation of your COPD. Avoid inhaled smoke such as cigarettes. Take Flovent 1 puff twice daily. Albuterol puff ever 2-3 hours as needed. Take Prednisone daily for 5 days. Take Doxycycline twice daily for 7 days. Avoid direct sunlight while taking Doxycycline. Follow-up this week with a primary care provider. You may need to be on an inhaled steroid so follow-up is crucial. Return if you have any new or worsening symptoms. Referrals: Tyrell Mason MD (PCP) Zayra Attestation Portions of this note were transcribed by Farhana Ramires. I, Dr. Limon personally performed the history, physical exam and medical decision-making; I reviewed and confirmed the accuracy of the information in the transcribed note. Signed by : Zayra Olmedo, 08/05/16 and 0158 copies to: Tyrell Mason MD, Todd P DO Aug 04, 2016 20:11 FARHANA RAMIRES Aug 04, 2016 20:24
[2016-08-04] MEDS ORDERED: MethylprednisoLONE Sodium Succinate 62.5 mg/mL 2 mL Inj IVPUSH ONE (20:15)
[2016-08-04] MEDS ORDERED: Albuterol-Ipratropium 3 mL Inhalation Solution NEB ONE (20:15)
[2016-08-04] MEDS ORDERED: Albuterol 2.5 mg/3 mL Inhalation Solution NEB ONE (20:15)
[2016-08-04] MEDS ORDERED: 0.9% Sodium Chloride 1,000 ML IV ONE (20:15)
[2016-08-04 20:35] VITALS: PULSE 68; RESP 20; O2SAT 95
[2016-08-04 20:50] LABS: BASOPHILS % (AUTO) 1.3 % (0-3); EOSINOPHILS % (AUTO) 9.3 % (0-5); MONOCYTES % (AUTO) 9.6 % (4-12); Mean Corpuscular Hemoglobin 28.8 pg (27.0-35.0); Mean Corpuscular Volume 85.1 fL (81-100); NEUTROPHILS % (AUTO) 59.6 % (40-74); Platelet Count 252 bil/L (150-400)
--- NOTE | 2016-08-04 21:16 | DRSVH ---
PROCEDURE: X-RAY CHEST ONE VIEW, PORTABLE ([id number]) INDICATIONS: 51 year-old male with respiratory distress. TECHNIQUE: One view of the chest was acquired. COMPARISON: [facility], CT, CHEST ANGIO-PE, 04/19/2014, 7:48. [facility], C R, XR CHEST 1VW (PORTABLE), 07/02/2016, 8:38. FINDINGS: Surgical changes and devices: None. Lungs and pleura: No pleural effusions or pneumothorax. Lungs are clear. Mediastinum: Mediastinal contours appear normal. Heart size is normal. Bones and chest wall: No suspicious bony lesions. Overlying soft tissues appear unremarkable. IMPRESSION: No acute cardiopulmonary disease. Dictated by: Kami Ritchie M.D. on 08/04/2016 at 21:12 Approved by: Kami Ritchie M.D. on 08/04/2016 at 21:14
[2016-08-04 23:07] VITALS: BP 111/61; PULSE 65; RESP 18; O2SAT 95
[2016-08-05] MEDS ORDERED: Albuterol 2.5 mg/3 mL Inhalation Solution NEB ONE (00:30)
[2016-08-05] MEDS ORDERED: _Albuterol-HFA 60 Puff Inhaler INHALATION PRN (01:55)
[2016-08-05 03:03] VITALS: BP 110/70; PULSE 70; RESP 14; O2SAT 100
== END 2016-08-05 03:06 | disposition home or self-care (01) ==
LOC: SED 19:55 → EDBD 19:55 → EDUNIT# 19:55 → SED 08-05 03:06
DX: J44.1 Chronic obstructive pulmonary disease with (acute) exacerbation (principal); J45.909 Unspecified asthma, uncomplicated; F20.9 Schizophrenia, unspecified; F17.200 Nicotine dependence, unspecified, uncomplicated; Z59.0 Homelessness; Z88.8 Allergy status to other drugs, medicaments and biological substances
CPT/HCPCS: 36415; 71010; 80053; 84484; 85025; 85378; 93005; 94644; 94645; 96361; 96374; 99285; J2930; J7030; J7613; J7620

== ENCOUNTER 2016-08-16 12:56 | Emergency (ER) | payer MEDICARE, MEDICAID ==
[~2016-08-16] VITALS: Ht 182.9 cm; Wt 85.5 kg
[2016-08-16 13:22] VITALS: BP 93/55; PULSE 88; RESP 18; O2SAT 97
--- NOTE | 2016-08-16 14:05 | ED.REPORT ---
HPI-General Illness Date of Service Aug 16, 2016 ED Provider: Gorge Molina PA-C Geraldo is a 51-year-old male with a history of schizophrenia who presents to emergency department seeking and doctor's note. The patient states that he was seen in this department July 23 to have an abscess drained on his left forearm. At that time he missed a court appearance. He is seeking a note to prove that he was seen in the emergency department. States that his wound is healing well. He presents with his auto specialty services manager. Nursing Notes Stated Complaint: PSYCH EVAL Chief Complaint: General Complaint Nursing Notes Reviewed: Yes Allergies: Coded Allergies: No Known Allergies (Verified Allergy, Unknown, 07/01/16) haloperidol (Verified Adverse Reaction, Intermediate, MAKES ME ANGRY, 08/16) Scheduled Clonazepam (Clonazepam) 0.5 Mg Tablet 0.5 MG PO BID Paliperidone Palmitate Inj (Invega Sustenna) 156 Mg/1 Ml Syringe 156 MG IM Q30D Scheduled PRN Albuterol HFA (Proair HFA) 8.5 Gm Hfa.aer.ad 2 PUFFS INHALATION Q4H PRN PRN For Shortness of Breath General Time Seen by MD: 13:46 Chief Complaint Other (seeking a note) Past Medical History Past Medical History Notes: PCP: Dr. Mason Past Medical History Schizophrenia Polysubstance dependence in past per old records Asthma COPD PTSD, Depression, Anxiety Past Surgical History Reviewed, not relevant Smoking History Current Every Day Smoker Social History Violent and antisocial at times with threatening behavior and a history of threatening and stalking ER staff. Alcohol Use: "Social" Drug Use: IV drugs, Meth, THC Other Social History: Homeless Ambulatory Status Independent Review of Systems Negative unless stated otherwise in history of present illness Physical Exam General: Well appearing, well developed, well nourished, no acute distress. Head: Atraumatic, normocephalic. Eyes: No scleral icterus or injection. No discharge. Vision grossly intact. ENT: Voice clear, hearing grossly intact. Respiratory: No respiratory distress, no increased work of breathing. Speaks in complete sentences. Skin: Warm and dry. Neurological: Grossly nonfocal. Left arm: Site of incision and drainage appears well-healed, with a small scar remaining. No redness, swelling. Psychological: alert and oriented. Speech appropriate, linear and logical. Behavior appropriate. Vital Signs Vital Signs Date Time Temp Pulse Resp B/P Pulse Ox O2 Delivery O2 Flow Rate FiO2 08/16/16 13:22 36.2 88 18 93/55 97 Room Air Initial VS: Vital signs normal Re-Eval/Medical Decision Med Decision/Clinical Course 51-year-old male with a history schizophrenia presents to emergency department with his auto specialty services manager from [facility] seeking a note to prove he was seen in this department 07/23/2016 to have an abscess drained. He states that he missed a court date at that time and has been asked to produce evidence. Note is provided. Check of the wound site shows good healing. Patient is discharged with return precautions. Unfortunately, the patient was brought to the emergency department for a note as a pretext for a psych evaluation. Floor Inspector reports increased hallucinations. This was not communicated to me and the patient was discharged prior to being evaluated by our foster care social worker. Floor Inspector was advised that if she feels the patient is a threat to himself or others, the police should be engaged. Attempt was made to convince the patient to return to emergency department by the auto specialty services manager, which was not successful. Discharge & Departure Primary Impression: Wound check, abscess Disposition: Home Discharge Condition All VS Reviewed: Yes Condition: Stable Additional Instructions: The site of your abscess appears to be healing quite well. I have provided to note to indicate that you were seen on 07/23/2016 per your request. Return to emergency department for any new or worsening symptoms. Referrals: Tyrell Mason MD (PCP) EDSupervising Provider for [facility]: Shanika Mejía MD copies to: Tyrell Mason MD, Seth PA-C Aug 16, 2016 14:05
== END 2016-08-16 14:38 | disposition home or self-care (01) ==
LOC: SED 12:56
DX: L02.414 Cutaneous abscess of left upper limb (principal); F20.9 Schizophrenia, unspecified; J45.909 Unspecified asthma, uncomplicated; J44.9 Chronic obstructive pulmonary disease, unspecified; F17.200 Nicotine dependence, unspecified, uncomplicated; Z59.0 Homelessness; Z88.8 Allergy status to other drugs, medicaments and biological substances

== ENCOUNTER 2016-08-16 15:11 | Emergency (ER) | payer MEDICARE, MEDICAID ==
[~2016-08-16] VITALS: Ht 180.3 cm; Wt 68.2 kg
[2016-08-16] MEDS ORDERED: LORazepam 1 mg Tablet PO ONE (15:35)
--- NOTE | 2016-08-16 15:35 | ED.REPORT ---
HPI-Psychiatric Illness Date of Service Aug 16, 2016 ED Provider: Jomar Best MD A homeless 51 year old male with a medical history including schizophrenia, methamphetamine abuse, COPD, PTSD, and asthma presents to the ED via Police accompanied by his manager rn case for a psych evaluation. The supervisor drapery hanging became concerned today when the patient was aggressive, responding to auditory hallucinations, and not responding to her voice, which is unusual for him. He has been living on the streets, not medically compliant and using IV methamphetamines daily. The patient was in the ED earlier today for a psych evaluation but there was miscommunication and the patient was discharged before this could occur. When the patient was brought in a second time, he ran away. The casework supervisor then called the police. He presents swearing and muttering. The patient is non-participatory in history or exam. Nursing Notes Stated Complaint: JALEESA Nursing Notes Reviewed: Yes Allergies: Coded Allergies: haloperidol (Verified Adverse Reaction, Intermediate, MAKES ME ANGRY, 08/16) Scheduled Clonazepam (Clonazepam) 0.5 Mg Tablet 0.5 MG PO BID Paliperidone Palmitate Inj (Invega Sustenna) 156 Mg/1 Ml Syringe 156 MG IM Q30D Scheduled PRN Albuterol HFA (Proair HFA) 8.5 Gm Hfa.aer.ad 2 PUFFS INHALATION Q4H PRN PRN For Shortness of Breath General Time Seen by MD: 15:33 Chief Complaint Aggressive behavior, Hallucinations, auditory Hx Obtained From: Pipe Layer Helper (Senior Java [id number] Developer) Unable to Obtain Hx: Patient condition, Uncooperative Arrived By: Police Onset Occurred: Onset unknown Symptom Duration: Since onset Pertinent Negative: Relieved by nothing Related History: Reports: Bipolar disorder, Illicit drug use, Noncompliant w medication, Schizophrenia Immunizations: Unknown Recent Healthcare: Recent doctor visit Similar Sx Previous: Yes Risk-Psychiatric Illness Suicide Risk Stratification RF Statements: Risk factors reviewed Past Medical History Past Medical History Notes: PCP: Dr. Mason Past Medical History Schizophrenia Polysubstance dependence in past per old records Asthma COPD PTSD Depression Anxiety Past Surgical History Reviewed, not relevant Smoking History Current Every Day Smoker Social History Violent and antisocial at times with threatening behavior and a history of threatening and stalking ER staff. Alcohol Use: "Social" Drug Use: IV drugs, Meth, THC Other Social History: Homeless Ambulatory Status Independent Review of Systems Unable to Obtain ROS Patient condition, Uncooperative Physical Exam Physical Exam Notes: Initial Vital Signs Vital Signs (First) Date Time Temp Pulse Resp B/P Pulse Ox O2 Delivery O2 Flow Rate FiO2 08/16/16 15:57 36.1 104 22 95/43 97 Room Air Initial VS: Reviewed Head / Eyes: Atraumatic, Normocephalic ENT: Conjunctiva normal, No scleral icterus Neck: Supple, Full range of motion Respiratory: No respiratory distress General/Constitutional: Awake Behavior: Positive: Aggressive, Agitated Patient is being held by police and not participatory in the exam or history PSYCH: Patient is agitated, agressive, and repeatedly muttering names of mediations with disorganized speech Interpretation & Diagnostics URINE DRUG SCREEN: Benzodiazepines (BZO) * Negative Barbituates (BAR) * Negative Cocaine (ESTELLE) * Negative Marijuana (THC) * Positive Methamphetamine (MET) * Positive Opiates (OPI) * Negative Methadone (MTD) * Negative Tricyclic Antidepressants (TCA) * Negative Oxycodone (OXY) * Negative Ecstasy (MDMA) * Negative Phencyclidine (PCP) * Negative Amphetamines (AMP) * Positive Lab Results Interpretation Result Diagram: 08/16/16 1550 08/16/16 1550 Test 08/16/16 15:50 08/16/16 18:35 White Blood Count 9.2th/mm3 (3.8-10.1) Red Blood Count 4.92mil/mm3 (4.40-5.80) Hemoglobin 14.1g/dL (13.8-17.2) Hematocrit 42.0% (41.0-50.0) Mean Corpuscular Volume 85.4fL (81-100) Mean Corpuscular Hemoglobin 28.7pg (27.0-35.0) Mean Corpuscular Hemoglobin Concent 33.6% (32.0-37.0) Red Cell Distribution Width 13.5% (12.3-15.4) Platelet Count 312bil/L (150-400) Neutrophils (%) (Auto) 54.5% (40-74) Lymphocytes (%) (Auto) 28.3% (14-46) Monocytes (%) (Auto) 8.9% (4-12) Eosinophils (%) (Auto) 6.5% (0-5) Basophils (%) (Auto) 0.9% (0-3) Sodium Level 132mEq/L (134-144) Potassium Level 3.7mEq/L (3.5-5.2) Chloride Level 92mEq/L (97-108) Carbon Dioxide Level 21mmol/L (18-29) Blood Urea Nitrogen 18mg/dL (6-24) Creatinine 1.31mg/dL (0.76-1.27) Estimat Glomerular Filtration Rate 62mL/min (>59) Glucose Level 86mg/dL (60-99) Calcium Level 9.5mg/dL (8.5-10.1) Total Bilirubin 0.3mg/dL (0.0-1.2) Aspartate Amino Transf (AST/SGOT) 34U/L (0-50) Alanine Aminotransferase (ALT/SGPT) 40U/L (0-44) Alkaline Phosphatase 72U/L (25-150) Total Creatine Kinase 150U/L (21-232) Total Protein 7.1g/dL (6.4-8.4) Albumin 4.2g/dL (3.4-5.0) Thyroid Stimulating Hormone (TSH) 1.390uIU/mL (0.450-4.500) Salicylates Level < 3.0ug/mL (30-250) Acetaminophen Level < 15.0ug/mL Rx (10-25) Alcohols < 10mg/dL (0-10) Hold Urine Received (Received) Re-Eval/Medical Decision Med Decision/Clinical Course A homeless 51 year old male with a medical history including schizophrenia, methamphetamine abuse, COPD, PTSD, and asthma presents to the ED via Police accompanied by his manager rn case for a psych evaluation. The supervisor drapery hanging became concerned today when the patient was aggressive, responding to auditory hallucinations, and not responding to her voice, which is unusual for him. He has been living on the streets, not medically compliant and using IV methamphetamines daily. The patient was in the ED earlier today for a psych evaluation but there was miscommunication and the patient was discharged before this could occur. When the patient was brought in a second time, he ran away. The casework supervisor then called the police. He presents swearing and muttering. The patient is non-participatory in history or exam. URINE DRUG SCREEN: + Marijuana + Methamphetamine + Amphetamines Labs: CBC unremarkable Creatinine 1.31 - slightly elevated CMP otherwise normal TSH within normal limits CK within normal limits Tylenol and Salicylates negative Alcohol negative Patient was seen and evaluated by emergency department social media marketing analyst. Recommendation at this time is for evaluation by [facility]. Initially the patient was quite agitated so called down without the use of medications. Patient has been signed out to Dr. Bowden pending medications from [facility]. He remained stable and in no apparent distress. Source of Hx: Old records Re-Evaluation/Progress : Time of Eval: 00:01 Patient Status: Condition improved Re-Evaluation/Progress Note: Patient is sleeping. Care will be turned over to Dr. Allison at change of shift. Consultation #1: Consulted With: healthcare social worker Call Returned at: 18:50 Suppository Molding Machine Operator: Agrees with eval, Agrees with plan Note: Recommends [facility] evaluation Consultation #2: Consulted With: healthcare social worker Call Returned at: 23:18 Suppository Molding Machine Operator: Will see patient, Agrees with eval, Agrees with plan Note: [facility]: Discussed patient's case Discharge & Departure Shift Change Sign-Out Patient Care Transferred: Yes (Dr. Allison) Discussed Complaint(s): Yes Laboratory Evaluation: Lab evaluation discussed Response to Therapy: Improved Impression: Primary Impression: Psychosis Psychosis type: unspecified psychosis type Qualified Code: F29 - Unspecified psychosis not due to a substance or known physiological condition Additional Impressions: Methamphetamine abuse Agitation Referrals: Tyrell Mason MD (PCP) Care Transferred to: Dr. Allison Care Transferred at: 00:10 Scribe Attestation Portions of this note were transcribed by Emy Goodwin. I, Dr. Best, personally performed the history, physical exam, and medical decision-making; I reviewed and confirmed the accuracy of the information in the transcribed note. Signed by: Zayra Cosme, 08/17/2016, 00:15 copies to: Tyrell Mason MD, Beck O MD Aug 16, 2016 15:35 EMY GOODWIN Aug 16, 2016 15:43
[2016-08-16 15:57] VITALS: BP 95/43; PULSE 104; RESP 22; O2SAT 97
[2016-08-16 16:05] LABS: BASOPHILS % (AUTO) 0.9 % (0-3); EOSINOPHILS % (AUTO) 6.5 % (0-5); MONOCYTES % (AUTO) 8.9 % (4-12); Mean Corpuscular Hemoglobin 28.7 pg (27.0-35.0); Mean Corpuscular Volume 85.4 fL (81-100); NEUTROPHILS % (AUTO) 54.5 % (40-74); Platelet Count 312 bil/L (150-400)
[2016-08-17] MEDS ORDERED: Ketamine 100 mg/mL 5 mL Inj IM ONE (06:45)
[2016-08-17 07:38] VITALS: BP 163/93; PULSE 92; RESP 18; O2SAT 96
[2016-08-17 08:07] VITALS: BP 129/92; PULSE 70; RESP 12; O2SAT 95
[2016-08-17 08:15] VITALS: BP 129/92; PULSE 70; RESP 12; O2SAT 95
--- NOTE | 2016-08-17 08:34 | DRSVH ---
PROCEDURE: X-RAY RIGHT HAND, MINIMUM THREE VIEWS ([id number]) INDICATIONS: trauma TECHNIQUE: 3 views of the hand(s) acquired. COMPARISON: None. FINDINGS: Bones: There is ill-defined lucency seen within a portion of the distal half of the first distal phal anx. It is seen only on one view. Soft tissues: No suspicious soft tissue calcifications. IMPRESSION: Ill-defined, partially visualized distal tuft lucency as above. It is seen only on one vi ew. This could be artifactual and recommend correlation with point tenderness. Dictated by: Toshia Alva M.D. on 08/17/2016 at 8:31 Approved by: Toshia Alva M.D. on 08/17/2016 at 8:32
== END 2016-08-17 08:16 | disposition short-term general hospital (02) ==
LOC: SED 15:11
DX: F29 Unspecified psychosis not due to a substance or known physiological condition (principal); F15.10 Other stimulant abuse, uncomplicated; F43.10 Post-traumatic stress disorder, unspecified; F20.9 Schizophrenia, unspecified; J44.9 Chronic obstructive pulmonary disease, unspecified; F17.200 Nicotine dependence, unspecified, uncomplicated; Z88.8 Allergy status to other drugs, medicaments and biological substances
CPT/HCPCS: 36415; 73130; 80053; 82550; 84443; 85025; 93005; 96372; 99285; G0480; J1200; J2060; S0166

== ENCOUNTER 2017-01-07 12:11 | Emergency (ER) | payer MEDICARE, MEDICAID ==
[~2017-01-07] VITALS: Ht 182.9 cm; Wt 86.4 kg
[2017-01-07 12:27] VITALS: BP 124/84; PULSE 79; RESP 16; O2SAT 99
[2017-01-07] MEDS ORDERED: predniSONE 20 mg Tablet PO ONE (12:55)
[2017-01-07] MEDS ORDERED: Albuterol 2.5 mg/3 mL Inhalation Solution NEB ONE (12:55)
[2017-01-07 13:04] LABS: BASOPHILS % (AUTO) 1.4 % (0-3); EOSINOPHILS % (AUTO) 17.8 % (0-5); MONOCYTES % (AUTO) 8.9 % (4-12); Mean Corpuscular Hemoglobin 29.2 pg (27.0-35.0); Mean Corpuscular Volume 85.9 fL (81-100); NEUTROPHILS % (AUTO) 46.4 % (40-74); Platelet Count 292 bil/L (150-400)
--- NOTE | 2017-01-07 13:05 | DRSVH ---
PROCEDURE: X-RAY CHEST, TWO VIEWS ([id number]) INDICATIONS: cough , shortness of breath TECHNIQUE: 2 views of the chest were acquired. COMPARISON: [facility], CR, XR CHEST 1VW (PORTABLE), 08/04/2016, 20:40. [facility], CR, XR CHEST 2VW, 05/05/2016, 5:47. FINDINGS: Surgical changes and devices: None. Lungs and pleura: No pleural effusions or pneumothorax. Lungs are clear. Mediastinum: Mediastinal contours are normal. Heart size is normal. Bones and chest wall: No suspicious bony abnormalities. Soft tissues appear unremarkable. IMPRESSION: No acute cardiopulmonary disease process. Dictated by: Rita Juarez MD, PhD on 01/07/2017 at 12:02 Approved by: Rita Juarez MD, PhD on 01/07/2017 at 12:03
--- NOTE | 2017-01-07 13:08 | ED.REPORT ---
HPI-Dyspnea / Wheezing Date of Service Jan 07, 2017 ED Provider: Patrick Ramos DO The pt is a 51 y/o male w/ a hx of schizophrenia, polysubstance abuse, asthma, COPD, PTSD, depression, and anxiety presenting to the ED complaining of SOB. The pt is also experiencing nasal congestion, wheezing, and a cough. The pt uses an inhaler and is not on steroids. He has never needed to be intubated before. Nursing Notes Stated Complaint: BREATHING PROBLEMS Chief Complaint: SOB Nursing Notes Reviewed: Yes Allergies: Coded Allergies: haloperidol (Verified Adverse Reaction, Intermediate, MAKES ME ANGRY, 01/07) Scheduled Azithromycin (Zithromax (Z-Gamaliel)) 250 Mg Tablet 250 MG PO DIRECTED Take two tablets by mouth on day 1, then take one tablet daily on days 2 through 5. Clonazepam (Clonazepam) 0.5 Mg Tablet 0.5 MG PO BID Paliperidone Palmitate Inj (Invega Sustenna) 156 Mg/1 Ml Syringe 156 MG IM Q30D Prednisone (PredniSONE) 50 Mg Tablet 50 MG PO DAILY Scheduled PRN Albuterol HFA (Proair HFA) 8.5 Gm Hfa.aer.ad 2 PUFFS INHALATION Q4H PRN PRN For Shortness of Breath General Time Seen by MD: 12:40 Chief Complaint Shortness of breath Hx Obtained From: Patient Arrived By: Walk-in Sudden in Onset?: Yes Onset Occurred: Just prior to arrival Symptom Duration: Since onset Recent Healthcare: No recent hospitalization, Recent doctor visit Similar Sx Previous: Yes Past Medical History Past Medical History Notes: PCP: Dr. Mason Past Medical History Schizophrenia Polysubstance dependence in past per old records Asthma COPD PTSD Depression Hepatitis C Anxiety Past Surgical History Reviewed, not relevant Smoking History Current Every Day Smoker Social History Violent and antisocial at times with threatening behavior and a history of threatening and stalking ER staff. Alcohol Use: "Social" Drug Use: IV drugs, Meth, THC Other Social History: Homeless Ambulatory Status Independent Review of Systems Wheezing; Ears / Nose / Throat: Reports: Nasal congestion Respiratory: Reports: Non-productive cough, Shortness of breath Complete sys rev & neg: except as marked. Physical Exam Initial Vital Signs Vital Signs (First) Date Time Temp Pulse Resp B/P Pulse Ox O2 Delivery O2 Flow Rate FiO2 01/07/17 12:27 36.7 79 16 124/84 99 Room Air Initial VS: Reviewed Head / Eyes: Atraumatic, Normocephalic, PERRL Extremities: Vascular intact, Neuro intact, No swelling, No tenderness Skin: Warm, Dry, No cyanosis Neurologic: Alert, Oriented, Nonfocal Psychiatric: Mood/affect normal, Behavior normal, Normal thought content General/Constitutional: Awake, Alert Neck: Atraumatic, Supple, Full range of motion Respiratory / Chest: Breath sounds = bilat Inspiratory and expiratory wheezes Cardiovascular: Heart rate NL, Regular rhythm, Heart sounds NL ENT: Airway patent Nasal congestion Interpretation & Diagnostics Lab Results Interpretation Result Diagram: 01/07/17 1258 01/07/17 1258 Test 01/07/17 12:58 White Blood Count 6.5th/mm3 (3.8-10.1) Red Blood Count 4.69mil/mm3 (4.40-5.80) Hemoglobin 13.7g/dL (13.8-17.2) Hematocrit 40.3% (41.0-50.0) Mean Corpuscular Volume 85.9fL (81-100) Mean Corpuscular Hemoglobin 29.2pg (27.0-35.0) Mean Corpuscular Hemoglobin Concent 34.0% (32.0-37.0) Red Cell Distribution Width 13.6% (12.3-15.4) Platelet Count 292bil/L (150-400) Neutrophils (%) (Auto) 46.4% (40-74) Lymphocytes (%) (Auto) 25.3% (14-46) Monocytes (%) (Auto) 8.9% (4-12) Eosinophils (%) (Auto) 17.8% (0-5) Basophils (%) (Auto) 1.4% (0-3) Sodium Level 134mEq/L (134-144) Potassium Level 4.1mEq/L (3.5-5.2) Chloride Level 97mEq/L (97-108) Carbon Dioxide Level 26mmol/L (18-29) Blood Urea Nitrogen 10mg/dL (6-24) Creatinine 0.96mg/dL (0.76-1.27) Estimat Glomerular Filtration Rate 88mL/min (>59) Glucose Level 107mg/dL (60-99) Calcium Level 8.8mg/dL (8.5-10.1) Total Bilirubin 0.2mg/dL (0.0-1.2) Aspartate Amino Transf (AST/SGOT) 29U/L (0-50) Alanine Aminotransferase (ALT/SGPT) 30U/L (0-44) Alkaline Phosphatase 66U/L (25-150) Total Protein 6.9g/dL (6.4-8.4) Albumin 3.8g/dL (3.4-5.0) Hold Ramírez Top Tube Received (Received) ECG Interpretation ECG Interpretation: Rate 70 NSR Time: 13:07 Interpreted by: ED physician X-Ray Chest Interpretation Chest Xray Interpretation: IMPRESSION: No acute cardiopulmonary disease process. Dictated by: Rita Juarez MD, PhD on 01/07/2017 at 12:02 Approved by: Rita Juarez MD, PhD on 01/07/2017 at 12:03 View: AP & lat Interpretation / Wet Read by: Interpret - Radiologist Re-Eval/Medical Decision Med Decision/Clinical Course Likely COPD exacerbation. We will plan to discharge on prednisone and Z-Gamaliel. Return and follow-up precautions given Source of Hx: Old records Counseled Regarding: Diagnosis, Lab results, Need for follow-up, When/why to return to ED Discharge & Departure Impression: Primary Impression: COPD with acute exacerbation Disposition: Home Discharge Condition All VS Reviewed: Yes Condition: Stable Additional Instructions: Thank for you entrusting us with your care today. You were diagnosed with COPD exacerbation. Your X-ray showed no signs of pneumonia. Please take the Z-pack and Prednisone as recommended and continue to use your Albuterol. Please return to the emergency department if you experience any new or worsening symptoms. Referrals: Tyrell Mason MD (PCP) Scribe Attestation Portions of this note were transcribed by Lopez Mooney. I, Dr. Ramos personally performed the history, physical exam and medical decision-making; I reviewed and confirmed the accuracy of the information in the transcribed note. copies to: Tyrell Mason MDPatrick Jermaine VENEGAS Jan 07, 2017 13:08 Lopez Mooney Jan 07, 2017 13:32
[2017-01-07 13:21] VITALS: PULSE 70; RESP 20; O2SAT 95
[2017-01-07] MEDS ORDERED: PRED50TA PO (13:59)
[2017-01-07] MEDS ORDERED: AZIT250T4 PO (13:59)
[2017-01-07 14:22] VITALS: BP 118/86; PULSE 70; RESP 22; O2SAT 98
== END 2017-01-07 14:36 | disposition home or self-care (01) ==
LOC: SED 12:11
DX: J44.1 Chronic obstructive pulmonary disease with (acute) exacerbation (principal); F41.8 Other specified anxiety disorders; F20.9 Schizophrenia, unspecified; B19.20 Unspecified viral hepatitis C without hepatic coma; F17.200 Nicotine dependence, unspecified, uncomplicated; Z59.0 Homelessness; Z88.8 Allergy status to other drugs, medicaments and biological substances
CPT/HCPCS: 36415; 71020; 80053; 85025; 93005; 94640; 94664; 99285; J7613